=== PATIENT | female | born 1935 | race African-American/Black ===

== ENCOUNTER 2016-04-14 15:46 | Inpatient (IN) | payer OTHER ==
[2016-04-14] MEDS ORDERED: NS 1,000 ML ONE (16:12)
[2016-04-14] MEDS ORDERED: NS 1,000 ML IV ONE (17:02)
[2016-04-14 17:08] LABS: MANUAL DIFF NEEDED? NO
[2016-04-14 17:10] LABS: BASO% 0.5 % (0.0-0.8); EOS# 0.25 X1000 (0.0-0.7); EOS% 2.3 % (0.0-10.0); HEMATOCRIT 35.7 % (37.0-47.0); HEMOGLOBIN 11.4 g/dL (12.0-16.0); IMM GRAN# 0.05 X1000 (0.0-0.04); IMM GRAN% 0.5 % (0.0-0.5); LYMPH# 2.92 X1000 (1.2-3.4); LYMPH% 26.7 % (20.5-51.1); MCH 30.2 PG (27-31); MCHC 31.9 g/dL (33-37); MCV 94.4 FL (81-99); MONO# 1.04 X1000 (0.11-0.59); MONO% 9.5 % (1.7-9.3); MPV 10.5 FL (7.4-10.4); NEUT% 60.5 % (42.2-75.2); PLT 239 X1000 (130-400); RBC 3.78 XMIL (4.2-5.4)
[2016-04-14 17:28] LABS: ALBUMIN 3.8 g/dL (3.5-5.0); CALCIUM 8.7 mg/dL (8.8-10.2); POTASSIUM 3.6 mmol/L (3.5-5.1); TOTAL BILIRUBIN 0.2 mg/dL (0.20-1.00); TOTAL PROTEIN 7.8 g/dL (6.3-8.3)
--- NOTE | 2016-04-14 18:00 | PROVIDER DOCUMENTATION ---
Addendum entered and electronically signed by Eugenie Upton Scribe 04/14/16 22: 39: EKG Interpretation - EKG Time of EKG reading by physician:: 22:29 EKG Read and Signed by:: Ruy Dwyer EKG Interpretation (*Must complete 3 of following elements*): Abnormal Rate: 91 Rhythm: NSR [place]: normal Comments: inferior infarct, age undetermined Addendum entered and electronically signed by Eugenie Upton Scribe 04/14/16 20: 19: Progress - CONSULTS/PCP/HOSPITALIST Notification #1 *Consult/PCP/Hospitalist*: Dr. Mccrary Time Discussed: 20:16 Consult Disposition: Will see in ED, Admit Original Note: HPI-General Adult - General Chief Complaint: B/P Problems Stated Complaint: GEN WEAKNESS Time Seen by Provider: 04/14/16 16:32 Source: patient, family Allergies/Adverse Reactions: Patient Allergies Allergy/AdvReac Type Severity Reaction Status Date / Time tuberculin,PPD,multi-puncture Allergy Unknown Verified 10/11/15 12:52 Home Medications: Carvedilol [Coreg] 25 mg PO BID 10/11/15 Clonidine HCl 0.1 mg PO Q8H PRN PRN 10/11/15 Duloxetine [Cymbalta] 60 mg PO BID 10/11/15 Gabapentin [Neurontin] 300 mg PO DAILY 10/11/15 Glipizide [Glucotrol] 5 mg PO DAILY 10/11/15 Lisinopril 10 mg PO DAILY 10/11/15 Pioglitazone [Actos] 15 mg PO DAILY 10/11/15 Saccharomyces Boulardii [Florastor] 250 mg PO BID 10/11/15 - History of Present Illness -Gen Adult Nature of Presenting Problems: 80 [facility] pt sent to ER [employer] secondary to BP of 80/50. She is known to have very labile HTN and did have a CVA 11 years ago. She did have a AAA repair several years complicated by an infection and purulent drainage. She has seen Dr. Whaley and did have a six week course of Rocephin without benefit. Location of Pain/Injury: reports: none Pain Radiation: reports: no radiation Quality of Pain: reports: none Associated Symptoms: denies: anxiety, back/neck pain, chest pain, cough, diaphoresis, fever/chills, nausea, shortness of breath Similar Symptoms Previously?: No Recently seen or treated by another doctor?: No Review of Systems - Adult - REVIEW OF SYSTEMS - ADULT Constitutional: denies: chills, fever, night sweats Eyes: reports: no symptoms reported Ears, Nose, Mouth & Throat: reports: no symptoms reported Cardiovascular: reports: other (hypotension) Respiratory: reports: no symptoms reported Gastrointestinal: reports: no symptoms reported Genitourinary: reports: no symptoms reported Musculoskeletal: reports: no symptoms reported Integumentary: reports: see HPI, skin sores/ulcer Neurological: reports: paresthesia Psychiatric: reports: no symptoms reported Endocrine: reports: increased thirst, polyuria Hematologic/Lymphatic: reports: no symptoms reported Past History - Adult - PAST MEDICAL HISTORY-ADULT Review of Records: reports: Old Records Reviewed, Medications Reviewed, Social history reviewed & non-contributory. Cardiovascular: reports: A-Fib, HTN, other (aaa) Gastrointestinal: reports: denies history Obstetrical/Gynecological: reports: denies history Genitourinary: reports: denies history Neurological: reports: CVA, stroke deficits (left sided) Endocrine/Immune: reports: Diabetes - PRIOR SURGERIES/PROCEDURES Surgical/Procedure History: reports: hysterectomy - IMMUNIZATION STATUS Childhood Immunizations: See Nurse Assessment Flu Vaccine: See Nurse Assessment - FAMILY HISTORY Family History: reviewed, not pertinent Physical Exam-General - PHYSICAL EXAM-ADULT Initial Vital Signs Reviewed: Yes (BP increased to 95/65 after 500 ml of saline) - CONSTITUTIONAL General Appearance: appears well, alert, no apparent distress, obese - EYES Eyes: PERRL/EOMI - HEAD, EARS, NOSE, MOUTH & THROAT HENMT: normocephalic/atraumatic - NECK Neck: non-tender, supple - RESPIRATORY Respiratory: chest non-tender, lungs clear - CARDIOVASCULAR Cardiovascular: normal peripheral pulses, irregularly irregular - GASTROINTESTINAL (ABDOMEN) Abdominal Exam: normal bowel sounds - GENITOURINARY Rectal Exam: deferred - LYMPHATIC Lymphatic: no adenopathy - MUSCULOSKELETAL Back Exam: normal inspection, no CVA tenderness, no vertebral tenderness (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) Extremity: negative: normal gait (draining fistlula LLQ) - SKIN Integumentary: other (draining fistula LLQ) - NEUROLOGIC Neurologic: grossly normal Progress - PLAN OF CARE/RESULTS Progress/Plan/Lab Results: Laboratory Tests 04/14/16 04/14/16 04/14/16 16:05 16:05 16:59 WBC 10.93 H RBC 3.78 L Hgb 11.4 L Hct 35.7 L MCV 94.4 MCH 30.2 MCHC 31.9 L RDW Std Deviation 14.0 Plt Count 239 MPV 10.5 H Immature Gran % (Auto) 0.5 Neut % (Auto) 60.5 Lymph % (Auto) 26.7 [place] % (Auto) 9.5 H Eos % (Auto) 2.3 Baso % (Auto) 0.5 Immature Gran # (Auto) 0.05 H Neut # (Auto) 6.62 H Lymph # (Auto) 2.92 [place] # (Auto) 1.04 H Eos # (Auto) 0.25 Baso # (Auto) 0.05 Sodium 135 L Potassium 3.6 Chloride 95 L Carbon Dioxide 23 L Anion Gap 17 BUN 28 H Creatinine 3.7 H Estimated GFR/1.73 m2 14 BUN/Creatinine Ratio 8 Glucose 159 H POC Glucose 143 H D Calculated Osmolality 279 Calcium 8.7 L Total Bilirubin 0.20 AST 13 ALT 10 Alkaline Phosphatase 80 Total Protein 7.8 Albumin 3.8 Globulin 4.0 Albumin/Globulin Ratio 0.9 Plasma Lactate 04/14/16 17:33 WBC RBC Hgb Hct MCV MCH MCHC RDW Std Deviation Plt Count MPV Immature Gran % (Auto) Neut % (Auto) Lymph % (Auto) [place] % (Auto) Eos % (Auto) Baso % (Auto) Immature Gran # (Auto) Neut # (Auto) Lymph # (Auto) [place] # (Auto) Eos # (Auto) Baso # (Auto) Sodium Potassium Chloride Carbon Dioxide Anion Gap BUN Creatinine Estimated GFR/1.73 m2 BUN/Creatinine Ratio Glucose POC Glucose Calculated Osmolality Calcium Total Bilirubin AST ALT Alkaline Phosphatase Total Protein Albumin Globulin Albumin/Globulin Ratio Plasma Lactate 2.6 H Orders Category Date Time Status Diabetic Diet Diet 04/14/16 18:23 Active CHEST-PORTABLE [RAD] Stat Exams 04/14/16 16:59 Taken ANAEROBIC CULTURE [RM] Routine Lab 04/14/16 17:02 Received BLOOD CULTURE [BLDCUL] Stat Lab 04/14/16 17:10 Received CBC WITH ELECTRONIC DIFF [HEME] Stat Lab 04/14/16 16:05 Completed COMPREHENSIVE METABOLIC PANEL [CHEM] Stat Lab 04/14/16 16:05 Completed GRAM STAIN [DIREX] Stat Lab 04/14/16 17:02 Received LACTATE, PLASMA [CHEM] Stat Lab 04/14/16 17:33 Completed ROUTINE CULTURE [RM] Routine Lab 04/14/16 17:02 Received UA NIMS W/REFLEX CULT [URINALYSIS] Stat Lab 04/14/16 16:58 Uncollected WOUND CULTURE INC GRAM STAIN [RM] Routine Lab 04/14/16 18:08 Ordered 0.9% Sodium Chloride Inj [Ns] 1,000 ml Med 04/14/16 16:12 Discontinued .ROUTE As Directed 0.9% Sodium Chloride Inj [Ns] 1,000 ml Med 04/14/16 17:02 Discontinued IV 999 mls/hr Pharmacy Order [Vancomycin IV Per Pharmacy] Med 04/14/16 18:30 Ordered 1 each MISC DIRECTED Piperacil/Tazobact 3.375 gm/Ns [Zosyn 3.375 gm/Ns] 50 Med 04/14/16 18:23 Active ml IV NOW Vital Signs Temp Pulse Resp BP Pulse Ox 04/14/16 17:50 93 H 18 119/60 98 04/14/16 15:47 99 F 95 H 15 90/62 99 tuberculin,PPD,multi-puncture Allergy (Verified 10/11/15 12:52) Unknown Carvedilol [Coreg] 25 mg PO BID 10/11/15 Clonidine HCl 0.1 mg PO Q8H PRN PRN 10/11/15 Duloxetine [Cymbalta] 60 mg PO BID 10/11/15 Gabapentin [Neurontin] 300 mg PO DAILY 10/11/15 Glipizide [Glucotrol] 5 mg PO DAILY 10/11/15 Lisinopril 10 mg PO DAILY 10/11/15 Pioglitazone [Actos] 15 mg PO DAILY 10/11/15 Saccharomyces Boulardii [Florastor] 250 mg PO BID 10/11/15 Aspirin 81 mg PO DAILY #30 10/18/15 Baclofen 10 mg PO DAILY PRN #30 10/18/15 CefTRIAXONE 2 GM/NS [Rocephin 2 gm/Ns] 2 gm IV Q12H #90 ivpb 10/18/15 Diltiazem C.d. [Cardizem Cd] 240 mg PO DAILY #30 capsule 10/18/15 Linaclotide [Linzess] 145 mcg PO DAILY@0700 #30 capsule 10/18/15 Dietary Diet Diabetic Diet Start WedApr 14 1822 I&O 04/13/16 04/14/16 04/15/16 06:59 06:59 06:59 Output Total 16 Balance -16 Laboratory 04/14/16 04/14/16 04/14/16 17:33 16:59 16:05 WBC RBC Hgb Hct MCV MCH MCHC RDW Std Deviation Plt Count MPV Immature Gran % (Auto) Neut % (Auto) Lymph % (Auto) [place] % (Auto) Eos % (Auto) Baso % (Auto) Immature Gran # (Auto) Neut # (Auto) Lymph # (Auto) [place] # (Auto) Eos # (Auto) Baso # (Auto) Sodium 135 L Potassium 3.6 Chloride 95 L Carbon Dioxide 23 L Anion Gap 17 BUN 28 H Creatinine 3.7 H Estimated GFR/1.73 m2 14 BUN/Creatinine Ratio 8 Glucose 159 H POC Glucose 143 H D Calculated Osmolality 279 Calcium 8.7 L Total Bilirubin 0.20 AST 13 ALT 10 Alkaline Phosphatase 80 Total Protein 7.8 Albumin 3.8 Globulin 4.0 Albumin/Globulin Ratio 0.9 Plasma Lactate 2.6 H 04/14/16 16:05 WBC 10.93 H RBC 3.78 L Hgb 11.4 L Hct 35.7 L MCV 94.4 MCH 30.2 MCHC 31.9 L RDW Std Deviation 14.0 Plt Count 239 MPV 10.5 H Immature Gran % (Auto) 0.5 Neut % (Auto) 60.5 Lymph % (Auto) 26.7 [place] % (Auto) 9.5 H Eos % (Auto) 2.3 Baso % (Auto) 0.5 Immature Gran # (Auto) 0.05 H Neut # (Auto) 6.62 H Lymph # (Auto) 2.92 [place] # (Auto) 1.04 H Eos # (Auto) 0.25 Baso # (Auto) 0.05 Sodium Potassium Chloride Carbon Dioxide Anion Gap BUN Creatinine Estimated GFR/1.73 m2 BUN/Creatinine Ratio Glucose POC Glucose Calculated Osmolality Calcium Total Bilirubin AST ALT Alkaline Phosphatase Total Protein Albumin Globulin Albumin/Globulin Ratio Plasma Lactate Departure - Departure Time of Disposition Order: 18:25 DIAGNOSIS: Septicemia, Vascular graft infection Disposition: ADMITTED INPATIENT 09 Certified Medical Emergency: Emergent Condition: Fair
[2016-04-14] MEDS ORDERED: ZOSYN 3.375 GM/NS 50 ML IV ONE (18:23)
[2016-04-14] MEDS ORDERED: VANCOMYCIN IV PER PHARMACY MISC SCH (18:30)
[2016-04-14 18:34] LABS: URINE SOURCE CATH
[2016-04-14 18:44] LABS: BILIRUBIN URINE NEGATIVE (NEGATIVE); BLOOD URINE NEGATIVE (NEGATIVE); COLOR YELLOW; GLUCOSE URINE TRACE mg/dL (NEGATIVE); LEUKOCYTES URINE SMALL (NEGATIVE); NITRITE URINE NEGATIVE (NEGATIVE); PROTEIN URINE 30 mg/dL (NEGATIVE); SP GRAVITY URINE 1.028; TURBIDITY URINE HAZY (CLEAR); UROBILINOGEN URINE 2 mg/dL (NORMAL)
[2016-04-14 18:47] LABS: URINE MICRO REVIEW NEEDED? YES
[2016-04-14 18:53] LABS: UR EPITHELIAL CELLS <10 /HPF (<10); URINE BACTERIA NEGATIVE /HPF; URINE CULTURE NEEDED? YES; URINE RBC <10 /HPF (<10); URINE WBC <10 /HPF (<10)
[2016-04-14 19:08] LABS: URINE CASTS NONE SEEN; URINE CRYSTALS NONE SEEN; URINE SMALL ROUND CELLS RENAL PRESENT
[2016-04-14] MEDS ORDERED: VANCOMYCIN 1,800 MG in NS 250 ML IV ONE (20:00)
[2016-04-14 20:50] LABS: INR 1.03; PROTIME 10.9 Seconds (9.2-11.7); PTT 26.1 Seconds (22.0-36.0)
[2016-04-15] MEDS ORDERED: TYLENOL LIQUID PO PRN (01:07)
[2016-04-15] MEDS ORDERED: ZOFRAN IV PRN (01:07)
[2016-04-15] MEDS ORDERED: NS 500 ML IV ONE (01:09)
[2016-04-15] MEDS: NS 1,000 ML IV SCH ×3 (01:18→18:29)
[2016-04-15 02:51] LABS: URINE SOURCE CATH
[2016-04-15 02:56] LABS: BILIRUBIN URINE NEGATIVE (NEGATIVE); BLOOD URINE SMALL (NEGATIVE); COLOR YELLOW; GLUCOSE URINE NEGATIVE (NEGATIVE); LEUKOCYTES URINE SMALL (NEGATIVE); NITRITE URINE NEGATIVE (NEGATIVE); PH URINE 5.5; PROTEIN URINE 30 mg/dL (NEGATIVE); TURBIDITY URINE HAZY (CLEAR); UROBILINOGEN URINE NORMAL (NORMAL)
[2016-04-15 02:57] LABS: URINE MICRO REVIEW NEEDED? YES
[2016-04-15 03:13] LABS: UR EPITHELIAL CELLS <10 /HPF (<10); URINE BACTERIA NEGATIVE /HPF; URINE CULTURE NEEDED? YES; URINE RBC <10 /HPF (<10); URINE WBC <10 /HPF (<10)
[2016-04-15] MEDS: ZOSYN 2.25 GM/NS 50 ML IV SCH ×3 (04:00→16:05)
[2016-04-15 04:19] LABS: URINE CASTS NONE SEEN
--- NOTE | 2016-04-15 05:51 | EKG Report ---
Test Performed on : 04/14/2016 10:29:12 PM Test Reason : Sepsis Blood Pressure : / mmHG Vent. Rate : 091 BPM Atrial Rate : 091 BPM P-R Int : 166 ms QRS Dur : 076 ms QT Int : 388 ms P-R-T Axes : 033 005 -04 degrees QTc Int : 477 ms Normal sinus rhythm. Inferior infarct , age undetermined Cannot rule out Anterior infarct , age undetermined Abnormal ECG When compared with ECG of 11-OCT-2015 15:46, Inferior infarct is now present Unconfirmed Result
[2016-04-15] MEDS: HUMALOG SUBQ SCH ×4 (06:48→21:14)
--- NOTE | 2016-04-15 06:58 | CONSULTATION ---
DATE OF CONSULTATION: 04/15/2016 REQUESTING PHYSICIAN: Hospitalist service. REASON FOR CONSULTATION: Consult concerning a left groin abscess. HPI: An 80-year-old, female at [facility] [employer] who was sent to the ER because of blood pressure 80/50 and was noted to have a chronic wound in her left groin. She had previously been evaluated by myself back in October of this year and had a seroma drained from her right groin. We elected to do nonoperative management of her left groin. She has an extensive surgical history including an aorta bi-fem and femoral distal bypass on that left side. Then on previous CT scan, this chronic wound is sitting right near her graft. She was admitted by the hospitalist service for this admission for altered mental status and this chronic wound. She has been started on vancomycin and Zosyn. Patient is currently altered and unable to give further details and there is no family available to give more information. I did discuss the patient's admission and hospital course with the tonger nurse practitioner from the hospitalist service. PAST MEDICAL HISTORY: 1. Atrial fibrillation. 2. Hypertension. 3. History of strokes. 4. History of AAA. 5. Persistent left-sided weakness. 6. Diabetes. PAST SURGICAL HISTORY: 1. Hysterectomy. 2. Previous aortobifemoral. 3. Previous left femoral distal bypass. 4. Previous left [id number] amputation. ALLERGIES: TB skin test. HOME MEDICATIONS: Reviewed. Of note, again patient is on Zosyn and vancomycin. FAMILY HISTORY: Reviewed from the chart. Noncontributory. SOCIAL HISTORY: [facility] REVIEW OF SYSTEMS: Unable to obtain secondary to patient's mental status. PHYSICAL EXAMINATION: Vital Signs: The patient is currently afebrile. Temperature 97.8 degrees, pulse is regular at 89, respiratory rate nonlabored at 17, blood pressure 117/72. O2 saturation 99% on room air. General exam: No acute distress. female, looks stated age. HEENT: Normocephalic, atraumatic. Pupils equal, round, reactive to light. Mucous membranes moist. Oropharynx benign. Neck: Supple. Trachea midline. Cardiovascular: Regular rate and rhythm. Lungs: Grossly clear. Abdomen: Soft, nontender, nondistended. Extremities: Chronic wound noted in the left groin. There is some purulence draining. Right groin appears without pathology. 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 Neurologic: Persistent left- sided weakness. LABORATORY: White blood cell count 10.9, hematocrit 35, platelet count 239,000, creatinine 3.7. ASSESSMENT/PLAN: An 80-year-old, female with a chronic wound to the left lower extremity and previous surgical interventions. Chronic wound to left lower extremity. At this time the patient is high risk for any surgical intervention. She has had this chronic wound for least half a year. We will reorder a CT scan to evaluate if there is any pseudoaneurysm at the area of the infection, but at this time I suspect the patient would not tolerate any major surgical intervention. Surgical intervention would likely be an extra-anatomic bypass including the axillary bifemoral bypass with removal of all her prosthetic material which would include an abdominal incision to remove her aorta bifemoral. This would likely be a very difficult surgery for the patient to tolerate given her comorbidities and overall health condition with residual neurologic defect and previous amputation. Suspect the best thing to do might be to continue her on suppressive antibiotics, but again will follow up with CT scan as ordered by the hospitalist service. I will review the images with some of my partners to get second opinions.
[2016-04-15 07:21] LABS: MANUAL DIFF NEEDED? NO
[2016-04-15 07:24] LABS: BASO% 0.4 % (0.0-0.8); EOS# 0.36 X1000 (0.0-0.7); EOS% 3.8 % (0.0-10.0); HEMATOCRIT 32.4 % (37.0-47.0); HEMOGLOBIN 10.4 g/dL (12.0-16.0); IMM GRAN# 0.03 X1000 (0.0-0.04); IMM GRAN% 0.3 % (0.0-0.5); LYMPH# 2.52 X1000 (1.2-3.4); LYMPH% 26.3 % (20.5-51.1); MCH 30.3 PG (27-31); MCHC 32.1 g/dL (33-37); MCV 94.5 FL (81-99); MONO# 1.03 X1000 (0.11-0.59); MONO% 10.7 % (1.7-9.3); MPV 10.7 FL (7.4-10.4); NEUT% 58.5 % (42.2-75.2); PLT 214 X1000 (130-400); RBC 3.43 XMIL (4.2-5.4)
[2016-04-15 07:51] LABS: URINE SOURCE CATH
[2016-04-15 07:56] LABS: BILIRUBIN URINE NEGATIVE (NEGATIVE); BLOOD URINE SMALL (NEGATIVE); COLOR YELLOW; GLUCOSE URINE NEGATIVE (NEGATIVE); LEUKOCYTES URINE NEGATIVE (NEGATIVE); NITRITE URINE NEGATIVE (NEGATIVE); PROTEIN URINE 30 mg/dL (NEGATIVE); SP GRAVITY URINE 1.016; TURBIDITY URINE CLEAR (CLEAR); UROBILINOGEN URINE NORMAL (NORMAL)
--- NOTE | 2016-04-15 07:56 | HISTORY AND PHYSICAL ---
PRIMARY CARE PROVIDER: Dr. Alex Pérez at [facility]. CHIEF COMPLAINT: Weakness and hypotension. HISTORY OF PRESENT ILLNESS: Ms. Robins is an 80-year-old female who presented to the emergency room tonight with the complaints of weakness and hypotension. According to her past medical records, it does appear that Dr. Whaley had recently been treating her for a left groin infection which was noted on her last admission in October of 2015, to extend down to the graft. The patient also has previously had vascular surgery performed by Dr. Teo Peres. At this time she has had an abdominal aortic aneurysm repair and iliofemoral bypass. She also had a left femoral- popliteal bypass. According to the emergency room staff, it was reported by the [facility] staff that the patient has been seeing Dr. Whaley and reviewing intravenous Rocephin for ongoing treatment of her wound in her left groin. Upon examination in the emergency room the patient's initial blood pressure was 90/62 with a MAP of 69. She did have a low-grade fever of 99 as well. It was also noted that the patient did have purulent drainage noted to the wound in her left groin area. The patient was also noted to be drowsy upon examination though did respond to verbal stimuli by calling her name. She is only alert and oriented to person. She thought it was August and that she was still at [facility]. Note on her transfer from the [facility], they noted that her baseline mental status is confusion also. The patient's initial lactate was 2.6. She was also noted to have significant reduction in her renal function. Her last GFR on October 25, 2015 was greater than 60 and her creatinine was 0.7 and is now 3.7. She does have noted in her past medical history that she has a history of chronic kidney disease though this has declined from previous labs. She was given a 1-liter normal saline bolus in the emergency room which did improve her blood pressure from 90/62 to 119/60. She also was given vancomycin and Zosyn. Blood cultures as well as a wound culture was obtained. At this time we will admit the patient for further treatment and evaluation of her sepsis and her left groin wound and her acute kidney injury. REVIEW OF SYSTEMS: A 10-point review of systems was conducted with the patient and all were negative except for pertinent positives mentioned in the above HPI. I did ask the patient if she was having any shortness of breath, chest pain, abdominal pain, or dizziness, though she answered no to every one of my questions. At this time the review of systems with the patient was difficult due to the patient's current mentation. PAST MEDICAL HISTORY: 1. Hypertension. 2. Atrial fibrillation. 3. Abdominal aortic aneurysm repair. 4. CVA with persistent left-sided weakness. 5. Diabetes mellitus type 2. 6. Left leg qcknr-[id number]-prwq amputation. 7. 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 8. Cataracts. 9. Visual problems. 10.Previous right groin seroma. 11.Previous left groin infection that extended down to her graft, which is recently being treated and followed by Dr. Whaley. PAST SURGICAL HISTORY: 1. Hysterectomy. 2. Status post vascular intervention on the left lower extremity, which according to the previous medical record in the historical patient data was a left femoral to distal popliteal graft bypass. 3. Status post aspiration of right groin seroma in October 2015. 4. Abdominal aortic aneurysm repair and iliofemoral bypass. SOCIAL HISTORY: The patient is a resident at [facility]. According to her record from the [facility], she does have a nicotine dependency, though due to the patient's current condition I was unable to verify if she still smokes at this time. Unknown if the patient has a previous history of any alcohol or illicit drug use. FAMILY HISTORY: This is unknown at this time as well due to we are unable to obtain information due to the patient's current condition. ALLERGIES: The patient has allergies to the tuberculin skin test. HOME MEDICATIONS: 1. Trazodone 75 mg p.o. at bedtime. 2. Florastor 250 mg p.o. b.i.d. 3. Klor-Con 20 mEq p.o. daily. 4. Actos 15 mg p.o. daily. 5. Melatonin 30 mg p.o. at bedtime. 6. Lisinopril 10 mg p.o. daily. 7. Linzess 145 mcg p.o. daily. 8. Glipizide 5 mg p.o. daily. 9. Neurontin 300 mg p.o. daily. 10.Pepcid 20 mg p.o. b.i.d. 11.Cardizem controlled dose 240 mg p.o. daily. 12.Clonidine HCl 0.1 mg p.o. q.8 h. p.r.n. 13.Coreg 25 mg p.o. b.i.d. 14.Baclofen 10 mg p.o. daily. 15.Aspirin 81 mg p.o. daily. DIAGNOSTIC DATA AND LABORATORY RESULTS: White blood cell count was 10.93. Red blood cell count 3.78. Hemoglobin 11.4. Hematocrit 35.7. Platelet count is 239,000. PT 10.9. INR 1.03. PTT 26.1. Sodium 135. Potassium 3.6. Chloride 95. Carbon dioxide 23. BUN was 28. Creatinine was 0.7 with a GFR of 14. Glucose 159. Calcium 8.7. Liver function tests within normal limits. CK 52. Troponin 0.048. Plasma lactate 2.6. The urinalysis obtained via cath was positive for protein, trace ketones, and small leukocytes. It was negative for blood, nitrites, white blood cells, or bacteria. The EKG showed a normal sinus rhythm with an inferior infarct, age undetermined, at a rate of 91. The chest x-ray at this time shows no acute disease. We did compare this to a previous x-ray which was very similar, though we are awaiting official Radiology over read. PHYSICAL EXAMINATION: VITAL SIGNS: Temperature 99, heart rate 94, respirations 20, and blood pressure is 110/65. The oxygen saturation is 98% on room air. GENERAL: Ms. Robins is an obese 80-year-old -[place] female who was resting on the emergency room stretcher, was in no acute distress. She was very drowsy upon examination though did respond to verbal stimulation by calling her name. Upon awakening she was alert and oriented to person only. HEENT: The head is normocephalic and atraumatic. The pupils are equal, round, and reactive to light, 3 mm bilaterally and brisk. The subconjunctivae were pink. The oral mucosa was dry. The oropharynx was clear. NECK: Supple. The trachea is midline. No carotid bruits are noted upon auscultation. No JVD is noted. CARDIOVASCULAR: The patient has an S1 and S2 present. No murmurs, rubs, or gallops are appreciated, with a regular rate and rhythm. PULMONARY: The patient has symmetrical chest expansion bilaterally. The lung sounds are clear to auscultation in bilateral full cook. GASTROINTESTINAL: The abdomen is soft, nontender, and nondistended. There is no facial grimacing noted upon palpation of the patient's abdomen. Bowel sounds are present in all four quadrants and normoactive. EXTREMITIES: The patient does have a left qtayi-[id number]-[id number] amputation noted. Pulses, motor, and sensory was intact in all extremities. The pedal pulses in the patient's right foot were obtained via vascular Doppler due to they were difficult to palpate. INTEGUMENTARY: The patient's skin color is normal for her race. It is warm, dry, and intact except for the wound noted to her left groin area, which does have purulent drainage noted. NEUROLOGICAL: The patient is alert and oriented to person only. The patient's neurological exam was limited and difficult to obtain due to the patient's current condition and mental status. ASSESSMENT AND PLAN: 1. Sepsis. We believe this is likely secondary to her left groin wound. We have obtained a wound culture of this, as well as blood cultures. We have placed the patient on antibiotics of vancomycin and Zosyn. Renal dosing was implemented. She did receive a 1-liter normal saline bolus in the emergency room. We will continue fluid hydration at 125 mL per hour. We will continue to follow this closely. We have consulted Dr. Ware with Surgery, who recently has treated the patient, as well as Dr. Whaley with Infectious Disease, and we will await their consult and further recommendations. 2. Left groin wound. We will continue with treatment as mentioned in #1. 3. Leukocytosis. We will continue with treatment as mentioned in #1. 4. Acute kidney injury on chronic kidney disease. As previously mentioned, the patient's kidney function has declined significantly related to her previous laboratories. We will continue with fluid hydration as previously mentioned. We have also placed a consult for Dr. Malave to evaluate the patient as well and for him to evaluate and treat. 5. Fluid volume depletion. We will continue with treatment as mentioned previously. 6. Hypotension. At this time since her 1-liter normal saline bolus this has resolved. The patient's last blood pressure was 110/65 with a mean arterial pressure of 70. We will monitor this very closely, and we will hold all her antihypertensive medications. 7. Diabetes mellitus type 2. We will take the patient off her oral diabetic medication and place her on a sliding scale insulin Lispro low-dose regimen, and we will continue to follow. 8. Atrial fibrillation. At this time the patient's current electrocardiogram shows that she is in a normal sinus rhythm. Due to her hypotension at this time we will hold her Cardizem and will continue to follow. 9. The patient will be placed in the intensive care unit. She will have vital signs q.1 h. per intensive care unit protocol. 10.Deep venous thrombosis prophylaxis will be provided with heparin 5000 units subcutaneously q.12 h. 11.We will do strict intake and output. 12.Neurological checks q.4 h. 13.We will do aspiration precautions. 14.She will be placed on a diabetic diet though due to her current condition and mental status we will perform a swallowing screen before implementing this diet. 15.We will repeat a complete blood count, as well as a renal profile in the morning. 16.We will trend her troponins due to there was a slight elevation of 0.048 though at this time the patient is not having any electrocardiogram changes and does not report any chest pain. 17.Further orders and recommendations pending the hospital course, diagnostic studies, and physician evaluation. Dictated by TATI Nguyen for Job Mccrary MD
[2016-04-15 07:58] LABS: URINE MICRO REVIEW NEEDED? YES
[2016-04-15 08:00] LABS: UR EPITHELIAL CELLS <10 /HPF (<10); URINE BACTERIA NEGATIVE /HPF; URINE WBC <10 /HPF (<10)
[2016-04-15 08:05] LABS: ALBUMIN 3.3 g/dL (3.5-5.0); CALCIUM 8.3 mg/dL (8.8-10.2); POTASSIUM 3.7 mmol/L (3.5-5.1)
--- NOTE | 2016-04-15 08:06 | Diag Imaging Result Document ---
PROCEDURE NAME: CHEST-PORTABLE - 04/14/2016 SINGLE FRONTAL RADIOGRAPH OF THE CHEST: COMPARISON: 10/16/2015. FINDINGS: Inspiration is suboptimal. The lungs are grossly clear. There is evidence of prior granulomatous disease that is stable. There is perhaps mild prominence of the cardiac silhouette that is unchanged. IMPRESSION: Stable chest with no definite acute pathology.
[2016-04-15 08:07] LABS: UR CREAT RANDOM 102.4 mg/dL (11-20); UR PROT RANDOM 50.2 mg/dL; URINE CASTS NONE SEEN; URINE CRYSTALS NONE SEEN; URINE SMALL ROUND CELLS NONE SEEN
--- NOTE | 2016-04-15 08:57 | CONSULTATION ---
DATE OF CONSULTATION: 04/15/2016 Patient is unable to provide a history. No family members present. The history that I obtained was from reviewing the data in the computer. CONCLUSION: Patient is admitted to the hospital with a left groin infection which undoubtedly extends to the underlying aortofemoral graft. RECOMMENDATIONS: I agree with the decision to treat the patient with a combination of vancomycin and Zosyn pending culture results. Previously, from the graft the patient has grown Morganella. DISCUSSION: The patient, as mentioned above, has what appears to be an infected aortobifemoral graft. She previously was in for the same infection in the same location in October 2015. At that time, we treated the patient with 6 weeks of IV antibiotics and the patient was then placed on Septra to take daily, to hopefully prevent the infection from becoming active. I noticed from the review of the patient's home medicines that she was not taking Septra. 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 She has had a hysterectomy. PREVIOUS HOSPITALIZATIONS AN OPERATIONS: She has had labor and deliveries, a hysterectomy, aortobifemoral graft performed by Dr. Peres, and a left [id number] amputation. MEDICAL DISEASES: Positive for peripheral vascular disease, diabetes mellitus, hypertension, stroke and end-stage renal disease. INFECTIOUS DISEASE HISTORY: Positive for a left groin infection, involving the graft as mentioned above. Negative for pneumonia and UTI. FAMILY HISTORY: Positive for diabetes mellitus, hypertension and stroke. SOCIAL HISTORY: The patient lives in a alf. She has a history of cigarette smoking, but not drinking alcoholic beverages. ALLERGIES: Her only allergy is to tuberculin skin test. HOME MEDICATIONS: Include trazodone, , potassium, Actos, melatonin, lisinopril, Linzess, glipizide, gabapentin, famotidine, diltiazem, clonidine, carvedilol, baclofen and aspirin. As mentioned previously, when I saw the patient during her last admission she was started on Septra to be taken daily, but I do not see where that is listed as one of her home medications at this time. PHYSICAL EXAMINATION: Vital Signs: Temperature is 97.8, pulse 89, respirations 17, blood pressure 117/72. General: This is an ill-appearing, elderly female, who is obtunded. HEENT: The patient did not respond to verbal stimuli. She did not open her eyes. There was no drainage coming from the nose or ears. Neck: No meningismus. Thorax: Patient appeared to have an increased AP diameter of the chest. Lungs: Clear to auscultation. Cardiovascular: Heart rate was regular. Abdomen: Soft without masses or tenderness. Extremities: In the left groin, there is a wound draining purulent fluid. It does not have an odor. Patient has a left lzszc-[id number]-[id number] amputation. I was unable to feel a peripheral pulse in the right leg. Neurologic: Patient is obtunded. She did not respond to verbal stimuli. She appears to have a paresis or paralysis of the left arm in that it is lying in bed in what appears to be a contractured position. Integument: No rash noted. LABORATORY DATA: Thus far today shows a CBC with a white count of 9600, hemoglobin 10.4, and platelet count 214,000. Creatinine is 3.7. GFR is 14. Liver function studies are normal. Urinalysis shows no bacteria and less than 10 white cells. Blood and urine cultures are pending. Wound Gram stain from the right groin showed no bacteria. As mentioned above, a culture taken from the groin in October of last year grew Morganella. Thank you for the consult.
[2016-04-15] MEDS: HEPARIN SUBQ SCH ×2 (09:11→21:16)
--- NOTE | 2016-04-15 09:51 | Diag Imaging Result Document ---
PROCEDURE NAME: ABDOMEN/PELVIS W/O CONTRAST - 04/15/2016 CT ABDOMEN AND PELVIS: COMPARISON: 10/14/2015. FINDINGS: There is some linear atelectasis in the lung bases, particularly the left lower lobe. There is fat deposition at the intraventricular septum indicating prior insult, such as infarction. There are scattered bilateral nonobstructing renal stones measuring up to about 8 mm, right greater than left. There are cholecystectomy clips. No bowel obstruction or inflammation. There has been bypass of the distal aorta extending to the femoral arteries. There is also a left superficial femoral artery bypass. There is a grossly stable, relatively large homogeneous fluid collection at the right groin extending to the very skin surface. This measures about 17.9 x 8.8 cm. Gracia catheter in the urinary bladder. Rectum is normal. Moderate degenerative changes of the spine. No acute bony lesions. IMPRESSION: 1. No change in the relatively large benign-appearing fluid collection in the right groin. 2. Significant bilateral nephrolithiasis with no evidence obstruction.
--- NOTE | 2016-04-15 09:57 | CONSULTATION ---
DATE OF CONSULTATION: 04/15/2016 REASON FOR CONSULTATION: Acute kidney injury. HISTORY OF PRESENT ILLNESS: Obtained entirely from the ER note because the patient is unresponsive. She is an elderly woman who resides in a local detention facility. She was brought to the emergency room last evening because of hypotension. Her evaluation found evidence of sepsis including purulent drainage from her left thigh graft. This is chronic. Modest leukocytosis and acute kidney injury. On these bases, she was admitted to the intensive care unit. She has been treated with IV fluid resuscitation with improvement in her blood pressure and her urine output. PAST MEDICAL HISTORY: 1. Cerebrovascular accident with residual left hemiparesis. 2. Peripheral vascular disease with an infected vascular graft in the left inguinal region. Left AKA as well. 3. Diabetes. 4. Hypertension. 5. Hyperlipidemia. HOME MEDICATIONS: Carvedilol, clonidine, duloxetine, gabapentin, glipizide, lisinopril, pioglitazone, Florastor. ALLERGIES: Tuberculin, PPD. SOCIAL HISTORY: As above. FAMILY HISTORY, REVIEW OF SYSTEMS: Otherwise not obtainable. PHYSICAL EXAMINATION: Vital Signs: Blood pressure 125/75, heart rate 88, respiration 18, afebrile. Intake is documented as 675 mL. General: Elderly woman, unresponsive. Actively resists eye opening, no distress. Skin: Warm and dry. Conjunctivae are pale. Oropharynx is not examined. Neck: Supple. Trachea is midline. Neck veins are not visible. Heart: Regular with S4 gallop. Lungs: Have equal breath sounds. No crackles or wheezes. Abdomen: Soft, nontender. Bowel sounds present. No organomegaly or masses. Extremities: Have no edema, clubbing, or cyanosis. Purulent drainage from the left inguinal region. Neurologic: Exam with flexion contracture of the left upper extremity. LABORATORY DATA: Sodium 139, potassium 3.7, chloride 102, bicarbonate 19, BUN 31, creatinine 2.7. Urinalysis with trace protein, small blood. FENA is greater than 1%. IMPRESSION: Acute kidney injury in the context of sepsis. Her urine output and her creatinine are improving nicely with IV fluid resuscitation. CT of the abdomen has been performed, but the results are pending. Continue current IV fluids. No other intervention is required at this time. I have reviewed her medications. Her Zosyn dose is appropriate for her level of kidney function. No other changes.
[2016-04-15] MEDS ORDERED: PRINIVIL PO SCH (13:45)
--- NOTE | 2016-04-15 14:41 | PROGRESS NOTE ---
DATE: 04/15/2016 SUBJECTIVE: This morning, Ms. Robins referred to be doing okay. According to the nurses, there have not been any changes in her medical condition. Vitals have been stable. OBJECTIVE: Vital signs: Blood pressure is 135/83, pulse of 97, respirations 23, temperature 97.3 degrees. General exam: Ms. Robins is an 80-year-old, female. She is in bed and does not seem to be in any distress. HEENT: Mucosa is pink and moist. Anicteric. Acyanotic. Neck: Supple. Chest: Good air entry bilaterally. Few bibasilar crepitations. Cardiovascular: Regular rate and rhythm. Abdomen: Soft, slightly distended, but nontender. Bowel sounds were present. There is bruising wound on the left inguinal region. Extremities: There is a left AKA; the right lower extremity shows no abnormality. 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 She is able to obey some commands, but she is nonverbal. She has a left side hemiplegic gait. LABORATORY DATA: WBC is 9.60, hemoglobin is 10.4, platelet count of 214. Sodium is 139, potassium is 3.7, chloride is 102, bicarbonate is 19, creatinine is 2.7 (a little improved). MICROBIOLOGY: So far, blood cultures still pending. Urine culture is negative. ASSESSMENT: 1. Hypotension on presentation suspicious for infectious etiology. The patient was started on antibiotics. Blood cultures and urine cultures were done. At this point in time, they have not been negative. I also think that it could be related to multiple blood pressure medications, as well as some sedatives that patient was on at home. 2. Large right inguinal benign-appearing fluid collection noted. 3. Suspected infected vascular graft. Surgery has been notified and they are on board. 4. History of cerebrovascular accident with left-sided hemiparesis. 5. 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 6. Acute kidney injury. We will continue with adequate hydration and avoid any nephrotoxic drugs. For now, we will withhold the lisinopril and only use the carvedilol for blood pressure control. PLAN: The patient's blood pressure is now a little high. We are going to start her on just the lisinopril. We are going to transfer the patient to the regular floor with telemonitor. We had planned to start the patient on the lisinopril, but because of the renal compromise we will withhold the lisinopril.
[2016-04-15] MEDS ORDERED: CARVEDILOL 25 MG PO SCH (17:06)
[2016-04-15] MEDS: COREG PO SCH (21:17)
--- NOTE | 2016-04-15 21:34 | CONSULTATION ---
DATE OF CONSULTATION: 04/15/2016 CHIEF COMPLAINT: Left groin drainage, right groin cyst. HISTORY: This is an 80-year-old, black female who has a history of an aortobifemoral bypass graft in the distant past by Dr. Peres. She now resides in a assisted and has undergone a left above-knee amputation in the past but she does have drainage from her left groin and a recurrent cyst in her right groin. A CT scan done back in October showed probable connection of the wound in the left groin to the graft and the cyst in fact may be associated with the graft as well. Cultures grew out Morganella. She is readmitted now with weakness and the situation with her graft persists. Ms. Robins's activity is rather limited as she resides in a wheelchair primarily, does not ambulate and is a resident of a assisted. MEDICATIONS: Listed. ALLERGIES: PPD. OTHER MEDICAL PROBLEMS: Atrial fibrillation, hypertension, stroke, diabetes. PAST SURGICAL HISTORY: Hysterectomy. FAMILY HISTORY: Noncontributory. REVIEW OF SYSTEMS: As noted above. PHYSICAL EXAMINATION: Vital Signs: Afebrile. Heart rate 90, respiratory rate 20, blood pressure 208/97. General: She does communicate. Lungs: Bilateral breath sounds. Heart: Regular rate and rhythm. Abdomen: Soft. She has drainage from her left groin. A rounded cystic structure is palpated in her right groin. Extremities: Her right leg has no palpable pedal pulses. The left stump is healed. ASSESSMENT: Infected aortobifemoral graft, however, she has no complicating features, that is no bleeding, infection or fever. In comparing the CT scans from now to the one from October 2015, there is no evidence of progression of the infectious process. The aortic portion appears to be satisfactorily incorporated and no false aneurysm is identified. The risk of removing the graft and revascularizing her lower extremities outweigh the benefits in view of her functional status. I discussed the risks of the operation to revascularize her legs and remove this graft. She really does not want to pursue that. The option would be simply to continue to treat her conservatively and treat her wound infection. She could be placed on chronic antibiotic therapy such as Bactrim to suppress the infection even though it will not heal the infection. I would leave that to the discretion of the Infectious Disease specialist. So I think the safer approach would be a conservative approach and not try to revascularize her and remove the infected graft. Thank you for allowing me the opportunity to see her. SEAN
[2016-04-16] MEDS: ZOSYN 2.25 GM/NS 50 ML IV SCH ×4 (00:01→16:59)
[2016-04-16] MEDS: NS 1,000 ML IV SCH ×3 (04:01→21:43)
[2016-04-16 05:50] LABS: MANUAL DIFF NEEDED? NO
[2016-04-16 05:58] LABS: BASO% 0.6 % (0.0-0.8); EOS# 0.13 X1000 (0.0-0.7); HEMATOCRIT 30.3 % (37.0-47.0); HEMOGLOBIN 9.9 g/dL (12.0-16.0); IMM GRAN# 0.02 X1000 (0.0-0.04); IMM GRAN% 0.3 % (0.0-0.5); LYMPH# 1.35 X1000 (1.2-3.4); LYMPH% 21.2 % (20.5-51.1); MCHC 32.7 g/dL (33-37); MCV 91.8 FL (81-99); MONO# 0.71 X1000 (0.11-0.59); MONO% 11.2 % (1.7-9.3); MPV 10.9 FL (7.4-10.4); NEUT% 64.7 % (42.2-75.2); PLT 251 X1000 (130-400)
[2016-04-16 06:21] LABS: AGAP 16; ALBUMIN 3.3 g/dL (3.5-5.0); BUN 15 mg/dL (8-22); CALCIUM 8.4 mg/dL (8.8-10.2); CHLORIDE 106 mmol/L (98-107); COSMO 283; POTASSIUM 3.7 mmol/L (3.5-5.1); SODIUM 141 mmol/L (136-145); TCO2 19 mmol/L (25-35)
--- NOTE | 2016-04-16 06:32 | PROGRESS NOTE ---
DATE: 04/16/2016 SUBJECTIVE: No major issues. Reviewed notes from other physicians. OBJECTIVE: Vital Signs: Patient is currently afebrile. Her vital signs have been stable. General Examination: No acute distress. Alert, somewhat interactive, female, looks stated age. HEENT: Normocephalic, atraumatic. Pupils equal, round, and reactive to light. Mucous membranes moist. Oropharynx benign. Neck: Supple. Trachea midline. Cardiovascular: Regular rate and rhythm. Lungs: Grossly clear. Abdomen: Soft, nontender, nondistended. Extremities: Chronic wound noted in the left groin with some purulence. Right groin unchanged. Laboratory: White blood cell count 6, hematocrit is 30.3. Remainder of labs reviewed. ASSESSMENT/PLAN: An 80-year-old, female with chronic wound above an aortobifemoral graft. Chronic wound. At this time, continue nonoperative management. I did have my partner, Dr. Corrigan, come and see the patient for a 2nd opinion. He agrees off to do suppressive antibiotics. We will continue to follow with you. I suspect the fluid collection on the right side is a persistent lymphatic leak and we had drained it previously and it has reaccumulated so at this time, we will monitor it.
[2016-04-16] MEDS: HUMALOG SUBQ SCH ×4 (06:42→21:46)
--- NOTE | 2016-04-16 07:20 | PROGRESS NOTE ---
DATE: 04/16/2016 HISTORY OF PRESENT ILLNESS: The patient has an infection of the left groin area, which sits right on top of an aortofemoral graft. I think undoubtedly the graft is involved. Previously, the patient has had an infection in the same area, and Morganella was isolated. MEDICATIONS: Currently, the patient is on vancomycin and Zosyn pending culture results. The doses of the antibiotics have been modified because of the end-stage renal disease. PHYSICAL EXAMINATION: Vital Signs: Temperature is 98.3 degrees, pulse 95, respirations 18, blood pressure 159/87. General: This is an ill-appearing elderly female. She is in no acute distress. Lungs: Clear to auscultation. Cardiovascular: Heart tones were distant, but it appeared that the patient's heart rate was irregular. Abdomen: Soft and nontender. Extremities: In the left groin area, there is a wound, which has gross pus coming from it. There is no odor to the pus. In the right groin, there is no area of drainage, and I did not feel any masses there. However, the patient is extremely obese. LABORATORY AND X-RAY: Creatinine is 1. GFR is greater than 60. CBC shows a white count of 6360, hemoglobin 9.9, and platelet count 251,000. Culture taken from the left groin, blood cultures, and a urine culture are all negative at this time. ASSESSMENT AND PLAN: The patient has a left groin wound infection, which I am sure involves the aortofemoral graft in that area. My plan will be to treat with the antibiotics intensely for 6 weeks, and then put the patient on a shelter oral antibiotics such as Septra DS daily or possibly some other choice. COMORBIDITIES: Include peripheral vascular disease, diabetes mellitus, and end-stage renal disease.
--- NOTE | 2016-04-16 07:54 | PROGRESS NOTE ---
DATE: 04/16/2016 SUBJECTIVE: She is more alert today. Eyes open. She responds verbally. OBJECTIVE: Vital Signs: Blood pressure 159/87, heart rate 95, respiration 18, afebrile. Intake 2.4 L. Output 2.1 L. General: Elderly woman, no distress. Skin: Warm and dry. HEENT: Conjunctivae are pale. Heart: Regular. Lungs: Have equal breath sounds. No crackles. Abdomen: Soft, nontender. Bowel sounds present. Extremities: Have no edema. LABORATORY DATA: Sodium 141, potassium 3.7, chloride 106, bicarbonate 19, BUN 15, creatinine 1.0. IMPRESSION: Acute kidney injury. Resolved. I will sign off at this time. If I can be of further assistance, please do not hesitate to call.
[2016-04-16] MEDS: COREG PO SCH ×2 (08:44→21:40)
[2016-04-16] MEDS: HEPARIN SUBQ SCH ×2 (08:45→21:40)
--- NOTE | 2016-04-16 13:43 | PROGRESS NOTE ---
DATE: 04/16/2016 Ms. Robins says she feels good. No pain at this time. Breathing comfortably. She has been eating but does not have much appetite. She still has a Gracia catheter, still has not gotten out of bed.Vital signs: Temperature 98.5 degrees, pulse 85, respirations 20, blood pressure 150/78. CVP less than 6 cm. Lungs: Clear in all lung cook. Cardiovascular: Regular rhythm and rate without murmur or S3. Abdomen: Soft. Skin warm and dry. Good urine output 2100 mL. This is an 80-year-old, black female who presented to the emergency room on 04/15/2016 complaining of weakness and hypotension. According to her past medical records, it appears Dr. Whaley has recently treated for a left groin infection back in October 2015 that extended down to her graft. Patient had vascular surgery performed Dr. Teo Ayala. At this time she has had abdominal aortic aneurysm repair and iliofemoral bypass. Also had left femoral popliteal bypass. According to nursing staff, patient has seen Dr. Sargent and has been receiving Rocephin ongoing treatment. Upon examination in the emergency room patient's initial blood pressure was 90/62, MAP was 69, had a low-grade fever of 99. She does have purulent drainage to the wound in the left groin and noted to be drowsy on examination when she was admitted. PAST MEDICAL HISTORY: Includes: 1. Hypertension. 2. Atrial fibrillation. 3. Abdominal aortic aneurysm repair. 4. CVA with persistent left-sided weakness. 5. Diabetes mellitus type 2. 6. Left leg [id number] amputation. 7. Contracture left hand and left arm. 8. Cataracts. 9. Visual problems. 10. Previous right groin seroma. 11. Previous left groin infection extended down to her graft recently been treated and follow up with Dr. Whaley. 12. So she was admitted with sepsis left groin wound. Obtained wound culture. She appears comfortable today. ASSESSMENT AND PLAN: 1. Patient infection left groin area that sits right on top of her aortofemoral graft. I think the graft Dr. Whaley feels is involved. Previously patient has had infection in the same area. Morganella was isolated. Patient on vancomycin and Zosyn pending culture results. The doses of antibiotics have been modified because of end-stage renal disease. The plan is to treat with antibiotics intensely for 6 weeks and then put the patient on long-term oral antibiotics such as Septra DS or possibly some other choice. 2. Acute kidney injury which is resolved and Dr. Webb has signed off. So renal function has improved. 3. Surgery following. No operative issues at this point. Dr. Corrigan and Dr. Ware evaluated infective aortofemoral graft, however no complicating features. No bleeding so continue IV antibiotics. 4. Large right inguinal benign appearing fluid collection seroma, watching. 5. Dementia. 6. Cerebrovascular accident with left-sided hemiparesis. LABORATORY DATA: Review of recent lab: White count 6360, hematocrit 30, platelet count 251,000, sodium 141, potassium 3.7, chloride 106, bicarb 19, BUN 15, creatinine 1.0, blood sugar 106-121, phosphorus 2.1, calcium 8.4. REVIEW OF CURRENT ORDERS: She is on vancomycin and Zosyn. She is on heparin 5000 units subcutaneous q. 12 hours. I do not see any changes at this point.
[2016-04-16] MEDS ORDERED: VANCOMYCIN 1,350 MG in NS 250 ML IV SCH (20:00)
[2016-04-17] MEDS: ZOSYN 2.25 GM/NS 50 ML IV SCH ×3 (00:08→12:05)
[2016-04-17] MEDS: NS 1,000 ML IV SCH ×3 (02:24→14:08)
--- NOTE | 2016-04-17 05:50 | PROGRESS NOTE ---
DATE: 04/17/2016 SUBJECTIVE: No major changes. Reviewed notes from other physicians. OBJECTIVE: Vital Signs: Patient is currently afebrile. Vital signs have been stable. General Examination: No acute distress. Interactive female who looks her stated ageHEENT: Normocephalic and atraumatic. Pupils equal, round and reactive to light. Mucous membranes moist. Oropharynx benign. Neck: Supple. Trachea midline. Cardiovascular: Regular rate and rhythm. Lungs: Grossly clear. Abdomen: Soft, nontender, nondistended. Extremities: Chronic wound noted to the left groin unchanged. Right groin unchanged. LABORATORY: Pending. MICROBIOLOGY: Wound has gram negative rods. ASSESSMENT/PLAN: An 80-year-old female with chronic wound above aorta bi-fem graft with chronic wound at this time. Continue nonoperative management. I had my partner Dr. Corrigan come by and see the patient who agrees with this plan. At this time , we will follow peripherally. [facility]
[2016-04-17] MEDS: HUMALOG SUBQ SCH ×2 (06:13→12:01)
[2016-04-17 06:33] LABS: HEMATOCRIT 30.8 % (37.0-47.0); HEMOGLOBIN 10.2 g/dL (12.0-16.0); MCH 30.7 PG (27-31); MCHC 33.1 g/dL (33-37); MCV 92.8 FL (81-99); MPV 11.4 FL (7.4-10.4); RBC 3.32 XMIL (4.2-5.4)
[2016-04-17 06:40] LABS: AGAP 19; ALBUMIN 3.3 g/dL (3.5-5.0); BUN 8 mg/dL (8-22); CALCIUM 8.3 mg/dL (8.8-10.2); CHLORIDE 100 mmol/L (98-107); COSMO 273; POTASSIUM 3.3 mmol/L (3.5-5.1); SODIUM 137 mmol/L (136-145); TCO2 18 mmol/L (25-35)
--- NOTE | 2016-04-17 09:31 | PROGRESS NOTE ---
DATE: 04/17/2016 PRESENT ILLNESS: The patient has an E. coli infected left groin area which involves the underlying graft. The patient also has same organism causing a urinary tract infection. MEDICATIONS: The patient currently is on vancomycin and Zosyn. PHYSICAL EXAMINATION: Vital Signs: Temperature is 98.8, pulse 84, respirations 18, blood pressure 175/75. General: This is an ill-appearing, elderly female. She is in no acute distress. Lungs: Clear to auscultation. Cardiovascular: Heart rate was regular. Abdomen: Soft and nontender. : In the left groin, there is a purulent drainage coming from the area where the graft is in place. LAB AND X-RAYS: CBC shows a white count of 6130, hemoglobin 10.2, and platelet count 273,000. Creatinine 0.9. GFR is greater than 60. Both the urine and the wound are growing E. coli. ASSESSMENT AND PLAN: I plan to treat the patient for a total of 6 weeks with p.o. Levaquin 500 mg daily and then switch her to Septra double-strength 1 tablet daily on a chronic basis. Hopefully, to keep any residual infection under control. I plan to see the patient back in my office in 6 weeks at which time I will change her dose from Levaquin 500 mg to Levaquin 250 mg daily. While the patient is getting the Levaquin by mouth, I have ordered a CBC and a creatinine to be drawn every week for 6 weeks.
[2016-04-17] MEDS: HEPARIN SUBQ SCH (09:58)
[2016-04-17] MEDS: COREG PO SCH (09:58)
[2016-04-17 11:30] VITALS: BP 177/95
--- NOTE | 2016-04-17 15:24 | DISCHARGE SUMMARY ---
ADMISSION DATE: 04/15/2016 DISCHARGE DATE: 04/17/2016 HOSPITAL COURSE: This is an 80-year-old, who was admitted on 04/15/2016, who presented to the emergency room on the fourth with complaints of weakness and hypotension according to the past medical records. Dr. Whaley has followed her. She has had a left groin infection which was superimposed or over left graft. Suspect there is some involvement. She was put on 6 weeks of antibiotics; I am not sure whether she was able to complete these. We finally did get a culture at this time that grew out E. coli which was sensitive to Levaquin. The decision is to continue to treat her with antibiotics for another 6 weeks, and then probably indefinitely after that she will follow up with Dr. Whaley in a week. The vascular surgeon that did the original surgery was Dr. Teo Peres. She had an abdominal aortic aneurysm repair, ileofemoral bypass, left femoral- popliteal bypass. She had a seroma that was slow to resolve on the right side. Clinically she showed improvement and remained afebrile. Abdominal and pelvic CT done on 04/15/2016: No change in relatively large benign-appearing fluid collection in the right groin. Significant bilateral nephrolithiasis, but no evidence of obstruction. Dr. Malave was consulted because of renal insufficiency, and she had some acute kidney injury which resolved. She had this injury in the context of sepsis; she felt she might have had a little bit of acute tubular necrosis, but this did resolve with fluids and conservative therapy. [place] she is ready go back to the longterm on 04/17/2016. DISCHARGE MEDICATIONS: She will take: 1. Levaquin 500 mg p.o. daily for another 6 weeks. She will follow up with Dr. Whaley. 2. She will take Coreg 25 mg b.i.d. 3. She was getting heparin here subcutaneous; I think we will stop that. 4. She will stop the Zosyn and stop the vancomycin. PREVIOUS MEDICATIONS: 1. Aspirin 81 mg a day. 2. Cardizem CD 240 mg a day. 3. Pepcid 20 mg b.i.d., 4. Neurontin 300 mg daily. 5. Glucotrol 5 mg a day. 6. Linzess 145 mcg capsule; I think she was taking that daily. 7. Lisinopril 10 mg a day. 8. Melatonin 3 mg at bedtime. 9. Actos 15 mg daily. 10. Klor-Con M 20 mEq daily. 11. Florastor, which is saccharomyces 250 mg p.o. b.i.d. 12. Trazodone ER 75 mg at bedtime.
[2016-04-17] MEDS ORDERED: VANCOMYCIN 1,350 MG in NS 250 ML IV SCH (20:00)
== END 2016-04-17 16:47 | DRG 314 ==
LOC: EDBD → ED 15:46 → EDIPHOLD 04-15 00:11 → ICU 04-15 00:32 → 4N 04-15 16:57
PROVIDERS: ATTEND Emergency Medicine
DX: T82.7XXA Infection and inflammatory reaction due to other cardiac and vascular devices, implants and grafts, initial encounter (principal); A41.9 Sepsis, unspecified organism; R65.20 Severe sepsis without septic shock; N17.9 Acute kidney failure, unspecified; E11.22 Type 2 diabetes mellitus with diabetic chronic kidney disease; E11.51 Type 2 diabetes mellitus with diabetic peripheral angiopathy without gangrene; I69.354 Hemiplegia and hemiparesis following cerebral infarction affecting left non-dominant side; I48.91 Unspecified atrial fibrillation; E86.9 Volume depletion, unspecified; I12.9 Hypertensive chronic kidney disease with stage 1 through stage 4 chronic kidney disease, or unspecified chronic kidney disease; L76.34 Postprocedural seroma of skin and subcutaneous tissue following other procedure; G30.9 Alzheimer's disease, unspecified; F01.50 Vascular dementia, unspecified severity, without behavioral disturbance, psychotic disturbance, mood disturbance, and anxiety; B96.20 Unspecified Escherichia coli [E. coli] as the cause of diseases classified elsewhere; E66.9 Obesity, unspecified; N18.9 Chronic kidney disease, unspecified; Z87.891 Personal history of nicotine dependence; Z82.3 Family history of stroke; Z79.899 Other long term (current) drug therapy; Z89.512 Acquired absence of left leg below knee; Z79.82 Long term (current) use of aspirin; Z83.3 Family history of diabetes mellitus; Z82.49 Family history of ischemic heart disease and other diseases of the circulatory system; F02.80 Dementia in other diseases classified elsewhere, unspecified severity, without behavioral disturbance, psychotic disturbance, mood disturbance, and anxiety; Z68.32 Body mass index [BMI] 32.0-32.9, adult
CPT/HCPCS: 71010; 74176; 80053; 80069; 81001; 82550; 82570; 82948; 83036; 83605; 84156; 84300; 84484; 85025; 85027; 85610; 85730; 87040; 87070; 87075; 87077; 87088; 87186; 87205; 93005; 96365; 96366; 96367; J1644; J1815; J2543; J3370; J7030; J7050

== ENCOUNTER 2016-06-22 13:35 | Inpatient (IN) | payer OTHER ==
[2016-06-22] MEDS ORDERED: D5 1/2 NS 1,000 ML IV ONE (14:26)
--- NOTE | 2016-06-22 14:33 | PROVIDER DOCUMENTATION ---
HPI-Neurological Disorder - General Chief Complaint: Weakness Stated Complaint: decreased LOC Time Seen by Provider: 06/22/16 14:21 Source: EMS, RN notes reviewed, detention records Unable to obtain history due to:: altered Allergies/Adverse Reactions: Patient Allergies Allergy/AdvReac Type Severity Reaction Status Date / Time tuberculin,PPD,multi-puncture Allergy Unknown Verified 04/27/16 16:27 Home Medications: Home Medication List Medication Instructions Recorded Confirmed Last Taken Type Carvedilol [Coreg] 25 mg PO BID 10/11/15 04/27/16 04/27/16 08:00 History Clonidine HCl 0.1 mg PO Q8H PRN PRN 10/11/15 04/27/16 Unknown History Gabapentin [Neurontin] 300 mg PO DAILY 10/11/15 04/27/16 04/27/16 08:00 History Glipizide [Glucotrol] 5 mg PO DAILY 10/11/15 04/27/16 04/27/16 08:00 History Lisinopril 10 mg PO DAILY 10/11/15 04/27/16 04/27/16 08:00 History Pioglitazone [Actos] 15 mg PO DAILY 10/11/15 04/27/16 04/27/16 08:00 History Saccharomyces Boulardii [Florastor] 250 mg PO BID 10/11/15 04/27/16 04/27/16 08: 00 History Aspirin 81 mg PO DAILY #30 10/18/15 04/27/16 04/27/16 08:00 Rx Baclofen 10 mg PO DAILY PRN #30 10/18/15 04/27/16 04/27/16 08:00 Rx Diltiazem C.d. [Cardizem Cd] 240 mg PO DAILY #30 capsule 10/18/15 04/27/1604/27 08:00 Rx Linaclotide [Linzess] 145 mcg PO DAILY@0700 #30 capsule 10/18/15 04/27/16 08:00 Rx Famotidine [Pepcid] 20 mg PO BID 04/14/16 04/27/16 04/27/16 08:00 History Melatonin 3 mg PO HS 04/14/16 04/27/16 04/26/16 21:00 History Potassium Chloride [Klor-Con M20] 20 meq PO DAILY 04/14/16 04/27/16 04/27/16 08: 00 History Trazodone E.r. [Oleptro ER] 75 mg PO QHS 04/14/16 04/27/16 04/26/16 21:00 History Acetaminophen Liquid [Tylenol 650 mg PO Q6H PRN PRN #0 udc 04/17/16 04/27/16 Unknown Rx Liquid] Carvedilol [Coreg] 25 mg PO BID #0 tablet 04/17/16 04/27/16 04/27/16 08:00 Rx Levofloxacin [Levaquin] 500 mg PO DAILY #40 tablet 04/17/16 04/27/16 04/27/16 08 :00 Rx - History of Present Illness-Neuro Nature of Presenting Problem: patient is a 81 y/o F that presents to ER via EMS from local [facility] care facility for decrease in mental status from her normal. 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 she has a site that is draining from her suprapubic area. She hasn't ate or drink in 3 days. Severity: reports: moderate, severe Onset/Duration: reports: gradual, 3 days ago Timing: reports: still present, constant Context: denies: recent infection, fever, paresthesia, facial droop Character of Altered Mental Status: reports: confused, decreased responsiveness Any recent trauma/injury?: reports: none Cognitive Baseline: alert but disoriented Gait Baseline: unable to walk Associated Symptoms: denies: headache, decreased ability to walk or stand, fainting, confusion, neck/back pain, fever/chills, nausea, vomiting Similar Symptoms Previously?: Yes Recently seen or treated by another doctor?: No Review of Systems - Adult - REVIEW OF SYSTEMS - ADULT ROS:: unobtainable per condition Constitutional: denies: chills, fever Eyes: reports: no symptoms reported Ears, Nose, Mouth & Throat: denies: ear pain, sinus problem, throat pain, throat swelling Cardiovascular: reports: no symptoms reported Respiratory: denies: cough, shortness of breath, wheezing Gastrointestinal: denies: abdominal pain, diarrhea, nausea, vomiting Genitourinary: reports: no symptoms reported Musculoskeletal: reports: no symptoms reported Integumentary: reports: see HPI Neurological: reports: other (ams). denies: dizziness/vertigo, headache/ migraines, seizure Psychiatric: reports: no symptoms reported Endocrine: reports: no symptoms reported Hematologic/Lymphatic: reports: no symptoms reported Allergic/Immunologic: reports: no symptoms reported All Other Systems: Reviewed and Negative Past History - Adult - PAST MEDICAL HISTORY-ADULT Review of Records: reports: Old Records Reviewed, Nursing Assessment Review, Medications Reviewed Cardiovascular: reports: A-Fib, HTN, other (aaa) Neurological: reports: CVA, stroke deficits (left sided) Endocrine/Immune: reports: Diabetes - PRIOR SURGERIES/PROCEDURES Surgical/Procedure History: reports: hysterectomy, orthopedic (extremity) (left aka), other (breast biopsy, AAA) - IMMUNIZATION STATUS Childhood Immunizations: See Nurse Assessment Flu Vaccine: See Nurse Assessment - FAMILY HISTORY Family History: reviewed, not pertinent - SOCIAL HISTORY Smoking: cigarettes, less than 1 pack/day Living Situation: care facility Physical Exam- Neurological - Physical Exam-Neuro Exam Limited by: pt condition Initial Vital Signs Reviewed: Yes General Appearance: mild distress, other (chronic ill appearing) Eye Exam: bilateral eye: normal inspection, PERRL HENMT: normocephalic/atraumatic, moist mucous membranes, normal ENT inspection Head Injury: no evidence of injury. negative: ecchymosis Neck: normal inspection. negative: lymphadenopathy Respiratory: lungs clear, normal breath sounds, no respiratory distress, no accessory muscle use Cardiovascular: regular rate, rhythm, no gallop Abdominal Exam: normal bowel sounds, non tender, soft Extremity: no pedal edema, normal capillary refill, other (left AKA) Motor/Sensory: weak motor strength LUE. negative: sensory deficit Neurologic: motor weakness (left sided), other (contractures to left side) Integumentary: warm/dry, other (wound to left groin) Psych/Mental Status: other (decrease responsiveness, opens eyes but doesn't follow commands) Progress - PLAN OF CARE/RESULTS Progress/Plan/Lab Results: plan of care-labs, ct head, meds Vital Signs Temp Pulse Resp BP Pulse Ox 06/22/16 15:11 71 14 111/67 98 06/22/16 13:53 98 F 71 17 103/87 100 tuberculin,PPD,multi-puncture Allergy (Verified 04/27/16 16:27) Unknown Carvedilol [Coreg] 25 mg PO BID 10/11/15 Clonidine HCl 0.1 mg PO Q8H PRN PRN 10/11/15 Gabapentin [Neurontin] 300 mg PO DAILY 10/11/15 Glipizide [Glucotrol] 5 mg PO DAILY 10/11/15 Lisinopril 10 mg PO DAILY 10/11/15 Pioglitazone [Actos] 15 mg PO DAILY 10/11/15 Saccharomyces Boulardii [Florastor] 250 mg PO BID 10/11/15 Aspirin 81 mg PO DAILY #30 10/18/15 Baclofen 10 mg PO DAILY PRN #30 10/18/15 Diltiazem C.d. [Cardizem Cd] 240 mg PO DAILY #30 capsule 10/18/15 Linaclotide [Linzess] 145 mcg PO DAILY@0700 #30 capsule 10/18/15 Famotidine [Pepcid] 20 mg PO BID 04/14/16 Melatonin 3 mg PO HS 04/14/16 Potassium Chloride [Klor-Con M20] 20 meq PO DAILY 04/14/16 Trazodone E.r. [Oleptro ER] 75 mg PO QHS 04/14/16 Acetaminophen Liquid [Tylenol Liquid] 650 mg PO Q6H PRN PRN #0 udc 04/17/16 Carvedilol [Coreg] 25 mg PO BID #0 tablet 04/17/16 Levofloxacin [Levaquin] 500 mg PO DAILY #40 tablet 04/17/16 Laboratory 06/22/16 06/22/16 06/22/16 15:09 14:37 14:37 WBC RBC Hgb Hct MCV MCH MCHC RDW Std Deviation Plt Count MPV Immature Gran % (Auto) Neut % (Auto) Lymph % (Auto) Bollinger % (Auto) Eos % (Auto) Baso % (Auto) Immature Gran # (Auto) Neut # (Auto) Lymph # (Auto) Bollinger # (Auto) Eos # (Auto) Baso # (Auto) Sodium 130 L Potassium 4.7 Chloride 99 Carbon Dioxide 20 L Anion Gap 11 BUN 20 Creatinine 1.1 H Estimated GFR/1.73 m2 58 BUN/Creatinine Ratio 18 Glucose 93 Calculated Osmolality 263 Calcium 8.9 Total Bilirubin 0.39 AST 17 ALT 6 L Alkaline Phosphatase 78 Total Protein 6.9 Albumin 2.9 L Globulin 4.0 Albumin/Globulin Ratio 0.7 Thyroxine (T4) 7.40 Urine Source CATH Urine Color YELLOW Urine Turbidity CLEAR Urine pH 5.5 Ur Specific Rena Lara 1.034 Urine Protein 50 A Ur Glucose (Stick) NEGATIVE Ur Ketones (Stick) TRACE A Urine Blood MODERATE A Urine Nitrite NEGATIVE Urine Bilirubin SMALL A Urobilinogen Dipstick 3 A Urine Leukocytes SMALL A 06/22/16 14:37 WBC 4.95 RBC 4.02 L Hgb 11.6 L Hct 35.0 L MCV 87.1 MCH 28.9 MCHC 33.1 RDW Std Deviation 16.5 H Plt Count 260 MPV 10.4 Immature Gran % (Auto) 0.4 Neut % (Auto) 56.2 Lymph % (Auto) 31.5 Bollinger % (Auto) 8.5 Eos % (Auto) 3.0 Baso % (Auto) 0.4 Immature Gran # (Auto) 0.02 Neut # (Auto) 2.78 Lymph # (Auto) 1.56 Bollinger # (Auto) 0.42 Eos # (Auto) 0.15 Baso # (Auto) 0.02 Sodium Potassium Chloride Carbon Dioxide Anion Gap BUN Creatinine Estimated GFR/1.73 m2 BUN/Creatinine Ratio Glucose Calculated Osmolality Calcium Total Bilirubin AST ALT Alkaline Phosphatase Total Protein Albumin Globulin Albumin/Globulin Ratio Thyroxine (T4) Urine Source Urine Color Urine Turbidity Urine pH Ur Specific Rena Lara Urine Protein Ur Glucose (Stick) Ur Ketones (Stick) Urine Blood Urine Nitrite Urine Bilirubin Urobilinogen Dipstick Urine Leukocytes Orders Category Date Time Status [facility]. [facility] Communication Order DIRECTED Care 06/22/16 14:32 Active HEAD W/O CONTRAST [CT] Stat Exams 06/22/16 14:27 Draft CBC WITH ELECTRONIC DIFF [HEME] Stat Lab 06/22/16 14:37 Completed CMP [COMPREHENSIVE METABOLIC PANEL] [CHEM] Stat Lab 06/22/16 14:37 Completed T4 Stat Lab 06/22/16 14:37 Completed UA NIMS W/REFLEX CULT [URINALYSIS] Stat Lab 06/22/16 15:09 Results WOUND CULTURE INC GRAM STAIN [RM] Routine Lab 06/22/16 15:09 Received Dextrose 5%-0.45% NaCl Inj [D5 1/2 Ns] 1,000 ml Med 06/22/16 14:26 Discontinued IV Wide Open hospitalist will be paged for admission - EKG 1 Time of EKG reading by physician:: 14:13 EKG Read and Signed by:: Won Philippe EKG Interpretation (*Must complete 3 of following elements*): Abnormal Rate: 70 Rhythm: Sinus Rhythm with PACs [place]: normal [place] Interval: normal ST Wave: normal - CT/MRI 1 CT Study: Head Impression: Abnormal CT Results: old large right cerebral hemisphere infarction, microvascular changes - CONSULTS/PCP/HOSPITALIST Notification #1 *Consult/PCP/Hospitalist*: ( 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) Time Discussed: 15:38 Consult Disposition: Will see in ED, Admit Departure - Departure Time of Disposition Order: 15:38 DIAGNOSIS: Failure to thrive in adult, Decreased responsiveness Altered mental status Qualifiers: Altered mental status type: unspecified Qualified Code(s): R41.82 - Altered mental status, unspecified Disposition: ADMITTED INPATIENT 09 Certified Medical Emergency: Emergent Condition: Stable Attestation - Scribe Verification/Attestation Scribe:: Boby Medina Acting as Scribe for:: Won Philippe Scribe documention review:: This chart was documented by a scribe and accurately reflects the service the provider performed and the decisions made by the provider. Physician Attestation - Physician Attestation I, the provider, attest to the following statement:: Won Philippe Physician documentation Attestation:: This documentation recorded by the scribe accurately reflects the service I personally performed and the decisions made by me.
[2016-06-22 14:37] LABS: MANUAL DIFF NEEDED? NO
[2016-06-22 14:56] LABS: BASO% 0.4 % (0.0-0.8); EOS# 0.15 X1000 (0.0-0.7); HEMOGLOBIN 11.6 g/dL (12.0-16.0); IMM GRAN# 0.02 X1000 (0.0-0.04); IMM GRAN% 0.4 % (0.0-0.5); LYMPH# 1.56 X1000 (1.2-3.4); LYMPH% 31.5 % (20.5-51.1); MCH 28.9 PG (27-31); MCHC 33.1 g/dL (33-37); MCV 87.1 FL (81-99); MONO# 0.42 X1000 (0.11-0.59); MONO% 8.5 % (1.7-9.3); MPV 10.4 FL (7.4-10.4); NEUT% 56.2 % (42.2-75.2); PLT 260 X1000 (130-400); RBC 4.02 XMIL (4.2-5.4)
[2016-06-22 14:57] LABS: ALBUMIN 2.9 g/dL (3.5-5.0); CALCIUM 8.9 mg/dL (8.8-10.2); POTASSIUM 4.7 mmol/L (3.5-5.1); TOTAL BILIRUBIN 0.39 mg/dL (0.20-1.00); TOTAL PROTEIN 6.9 g/dL (6.3-8.3)
--- NOTE | 2016-06-22 15:07 | Diag Imaging Result Document ---
PROCEDURE NAME: HEAD W/O CONTRAST - 06/22/[address]: A CT dose reduction protocol was used. COMPARISON: None. FINDINGS: There is a large remote infarct at the right cerebral hemisphere in the middle cerebral artery territory. This predominantly affects the temporal-parietal lobe. There is some extension into the frontal lobe. There is moderately extensive periventricular white matter chronic microvascular disease bilaterally, right greater than left. No intracranial mass or hemorrhage. The skull is intact. The sinuses, mastoids, and middle ears are clear. IMPRESSION: 1. Large old right cerebral hemisphere infarction. 2. Chronic microvascular disease. 3. No acute findings. [facility]
[2016-06-22 15:23] LABS: URINE SOURCE CATH
[2016-06-22 15:27] LABS: BILIRUBIN URINE SMALL (NEGATIVE); BLOOD URINE MODERATE (NEGATIVE); COLOR YELLOW; GLUCOSE URINE NEGATIVE (NEGATIVE); LEUKOCYTES URINE SMALL (NEGATIVE); NITRITE URINE NEGATIVE (NEGATIVE); PH URINE 5.5; PROTEIN URINE 50 mg/dL (NEGATIVE); SP GRAVITY URINE 1.034; TURBIDITY URINE CLEAR (CLEAR); UROBILINOGEN URINE 3 mg/dL (NORMAL)
[2016-06-22 15:50] LABS: UR EPITHELIAL CELLS <10 /HPF (<10); URINE BACTERIA NEGATIVE /HPF; URINE CULTURE NEEDED? YES; URINE MICRO REVIEW NEEDED? YES; URINE RBC TNTC /HPF (<10); URINE WBC <10 /HPF (<10)
[2016-06-22 15:54] LABS: URINE CASTS NONE SEEN
[2016-06-22] MEDS ORDERED: VANCOMYCIN IV PER PHARMACY MISC SCH (16:45)
[2016-06-22] MEDS ORDERED: VANCOMYCIN 1,650 MG in NS 250 ML IV ONE (18:00)
[2016-06-22] MEDS ORDERED: ZOFRAN IV PRN (18:54)
[2016-06-22] MEDS ORDERED: SODIUM CHLORIDE 0.9% INJ SCH (18:54)
[2016-06-22] MEDS: NS 1,000 ML IV SCH (19:31)
[2016-06-22] MEDS: PROTONIX IV SCH (19:31)
[2016-06-22] MEDS: ZOSYN 3.375 GM/NS 50 ML IV SCH (20:04)
--- NOTE | 2016-06-22 20:47 | Diag Imaging Result Document ---
PROCEDURE NAME: CHEST-PORTABLE - 06/22/2016 SINGLE FRONTAL RADIOGRAPH OF THE CHEST: COMPARISON: 04/27/2016. FINDINGS: There is evidence of prior granulomatous disease, stable. Inspiration is suboptimal. The lungs are grossly clear. There is stable cardiomegaly. Central vasculature is unremarkable. IMPRESSION: Stable cardiomegaly. No definite acute pathology by plain radiograph.
[2016-06-22] MEDS: HUMULIN R SUBQ SCH (21:00)
--- NOTE | 2016-06-22 22:03 | HISTORY AND PHYSICAL ---
PRIMARY CARE PROVIDER: Dr. Alex Pérez at [facility]. CHIEF COMPLAINT: Weakness, decreased appetite. Not eating over the last 3 days. HISTORY OF PRESENT ILLNESS: Ms. Robins is an 80-year-old, female who presented from rehab with reports of decreased level of consciousness, weakness, and decreased appetite over the last 3 days with a site of drainage in the left groin area that has purulent drainage. The patient is currently essentially nonverbal with expressive aphasia, unable to obtain much information from her and information has been obtained through past medical record and transfer records from facility. On admission, she was found to have a white blood cell count of 4000, she is afebrile, but there is an area in the left groin that has a significant amount of purulent drainage with a foul smell. This drainage has been sent for culture, and she will be started on broad-spectrum antibiotics. Given her altered mental status or decreased mentation, she was sent for head CT which only showed a large old right cerebral hemisphere infarct, but no new findings. She was verbal. I am not sure she said her name, but she said something. She opened her eyes, and she wiggled her right toe. That was as far as it went as far as neuro assessment, which could be close to her baseline. She does appear to be somewhat dehydrated, so she will receive IV fluid hydration. Her albumin level is low. She has a severe protein calorie malnutrition and a dirty UA, but it is negative for bacteria, negative for nitrites. It does show some small leukocytes and present yeast, but that is about it. We will admit her to the medical floor , give her IV fluid hydration, put an NG tube for enteral nutrition and followup with blood cultures, the wound culture of left groin and continue with positive broad-spectrum antibiotics. PAST MEDICAL HISTORY: Hypertension, atrial fibrillation, abdominal aortic aneurysm, status post repair, CVA, with left arm contracture. 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 Whaley. She was recently admitted in April of this year and was followed for a left groin abscess that had E. coli infection. She was followed with Addi and was to follow up with Dr. Whaley. SURGICAL HISTORY: 1. Hysterectomy. 2. Status post vascular intervention of the left lower extremity which according to the previous medical record was a left [id number] popliteal graft bypass. 3. Status post aspiration of right groin seroma in October 2015. 4. Abdominal aortic aneurysm repair with ileofemoral bypass. SOCIAL HISTORY: Currently a resident at [facility]. Has had tobacco abuse in the past. Unable to confirm alcohol or illicit drug use. FAMILY HISTORY: Unable to obtain. ALLERGIES: Tuberculin, PPD. HOME MEDICATIONS: Currently is being verified, but what is currently listed most recent is Actos, Cymbalta 60 mg twice a day, Pepcid 20 twice a day, melatonin 3 mg at night, trazodone 75 mg at night, potassium, Coreg, but all of these are having to be reverified. REVIEW OF SYSTEMS: Unable to obtain. LABORATORY DATA: White blood cells 4000, hemoglobin 11, hematocrit 35, platelet count 260,000. Sodium 130, potassium 4.7, BUN 11, creatinine is 1.1, glucose 93, liver enzymes normal, albumin 2.9. T4 7.4. Urinalysis 50 protein, trace ketones, moderate blood, small bilirubin, small leukocytes too numerous to count red blood cells and yeast. IMAGING: Head CT: Large old right cerebellar hemispheric infarct. Chronic microvascular disease. No acute findings. PHYSICAL EXAMINATION: VITAL SIGNS: Temperature 98 degrees, heart rate 71, respiratory rate 14, blood pressure 111/67, O2 saturation 98% on room air. HEIGHT, WEIGHT: 5 feet 6 inches tall, 184 pounds, BMI 29.7. GENERAL: Ms. Brendon Robins is an 81-year-old female who is essentially nonverbal. Did follow 1 simple command. HEENT: Atraumatic. Pupils were equal and reactive. Mucous membranes are dry. NECK: No JVD or carotid bruits noted. CARDIOVASCULAR: S1, S2. Regular rate and rhythm. No rubs, gallops, murmurs. PULMONARY: Clear to auscultate, bilateral breath sounds. Decreased in the bases. No accessory muscle use or work of breathing noted. NEUROLOGIC: Verbalized 1 word, but it was undecipherable. Wiggled right toes to command. Opened eyes, but it was unclear if she was focusing or tracing. Essentially did not follow any other commands. She has chronic left arm contracture. The left extremities status post amputation. EXTREMITIES: Right lower extremity, no edema noted. +2 dorsalis and +2 radial pulses. SKIN: Left groin area with what appears to be maybe an infected area where there was ingrown hair. There is purulent drainage that has a foul smell. It is kind of a milky color with a moderate amount. ASSESSMENT AND PLAN: 1. Left groin abscess. Culture sent. Broad-spectrum antibiotics have been ordered. We will follow up on culture. She is afebrile and normal white blood cell count. Apparently she had this back in April that was positive for Escherichia coli. This may have not fully resolved. We will consult Dr. Whaley if needed. 2. Severe protein calorie malnutrition. We will put nasogastric tube in, consult Nutrition for tube feeds. We will order a pre-albumin for in the morning. 3. Dehydration. We will do intravenous fluid hydration for now. 4. Possibly infectious encephalopathy secondary to left groin infection or this could be her baseline. She has got a history of a right hemispheric infarction which caused chronic contracture of the left arm and is essentially nonverbal. There are no acute findings on the head computed tomography. 5. Hyponatremia. She will be receiving normal saline intravenous fluids. 6. Diabetes mellitus type 2. We will do pattern blood glucoses. Sliding scale insulin. 7. Hypertension. Hold medications for now. 8. Deep venous thrombosis prophylaxis. Lovenox. 9. Gastrointestinal prophylaxis. Proton pump inhibitor. Dictated by TATI Patel for Freedom Houser MD [facility]
[2016-06-23] MEDS: ZOSYN 3.375 GM/NS 50 ML IV SCH ×5 (00:16→22:40)
[2016-06-23] MEDS: NS 1,000 ML IV SCH ×2 (04:59→14:08)
[2016-06-23 07:36] LABS: MANUAL DIFF NEEDED? NO
[2016-06-23 07:52] LABS: BASO% 0.4 % (0.0-0.8); EOS# 0.23 X1000 (0.0-0.7); EOS% 5.1 % (0.0-10.0); HEMATOCRIT 32.5 % (37.0-47.0); HEMOGLOBIN 10.7 g/dL (12.0-16.0); LYMPH# 1.29 X1000 (1.2-3.4); LYMPH% 28.4 % (20.5-51.1); MCH 28.5 PG (27-31); MCHC 32.9 g/dL (33-37); MCV 86.4 FL (81-99); MONO# 0.51 X1000 (0.11-0.59); MONO% 11.2 % (1.7-9.3); MPV 10.5 FL (7.4-10.4); NEUT% 54.9 % (42.2-75.2); PLT 258 X1000 (130-400); RBC 3.76 XMIL (4.2-5.4)
--- NOTE | 2016-06-23 07:58 | Diag Imaging Result Document ---
PROCEDURE NAME: CHEST/ABD TUBE PLACEMENT - 06/23/2016 SINGLE FRONTAL RADIOGRAPH OF THE LOWER CHEST AND UPPER ABDOMEN: COMPARISON: 06/22/2016. FINDINGS: The tip of the NG tube projects over the region of the gastroesophageal junction. It may not even be in the lumen of the stomach. Advancement of at least 7-8 cm is recommended. IMPRESSION: Tip of the NG tube projecting over the region of the GE junction. Advancement is recommended.
[2016-06-23 08:12] LABS: INR 1.04; PROTIME 10.6 Seconds (9.2-11.7); PTT 25.3 Seconds (22.0-36.0)
[2016-06-23 08:15] LABS: AGAP 12; ALBUMIN 2.7 g/dL (3.5-5.0); ALKALINE PHOSPHATASE 71 U/L (32-104); BUN 13 mg/dL (8-22); CALCIUM 8.2 mg/dL (8.8-10.2); CHLORIDE 107 mmol/L (98-107); COSMO 278; GOT 10 U/L (10-30); GPT < 5 U/L (10-36); MAGNESIUM 1.5 mg/dL (1.5-2.7); POTASSIUM 4.3 mmol/L (3.5-5.1); PREALBUMIN 11.3 mg/dL (20-40); SODIUM 139 mmol/L (136-145); TCO2 20 mmol/L (25-35); TOTAL BILIRUBIN 0.55 mg/dL (0.20-1.00); TOTAL PROTEIN 6.1 g/dL (6.3-8.3)
[2016-06-23] MEDS: HUMULIN R SUBQ SCH ×4 (08:29→21:08)
--- NOTE | 2016-06-23 08:29 | Diag Imaging Result Document ---
PROCEDURE NAME: CHEST-1 VIEW - 06/22/2016 SINGLE FRONTAL RADIOGRAPH OF THE LOWER CHEST AND UPPER ABDOMEN: COMPARISON: 06/22/2016. FINDINGS: There is a newly placed NG tube. The tip projects very near the GE junction. It may be in the distal esophagus or, perhaps, the cardia of the stomach. Advancement of at least 7-8 cm is recommended for more optimal position. Otherwise, limited views of the lungs are essentially stable as compared to the recent prior study. IMPRESSION: Interval placement of NG tube that is near the GE junction. Advancement is advised.
--- NOTE | 2016-06-23 08:46 | Diag Imaging Result Document ---
PROCEDURE NAME: ABDOMEN FLAT/UPRIGHT - 06/22/2016 FLAT AND UPRIGHT RADIOGRAPH OF THE ABDOMEN, 3 VIEWS: COMPARISON: 06/23/2016. FINDINGS: There are unremarkable bowel gas and stool patterns. There is no obstructive pattern. There is no evidence of large-volume free abdominal gas. There is a newly placed NG tube with the tip projecting over the region of the GE junction. It is possible that it is in the distal esophagus but may be in the cardia of the stomach. Advancement of at least 7-8 cm is recommended for more optimal position. IMPRESSION: Tip of the NG tube projecting over the GE junction. Advancement is recommended.
[2016-06-23] MEDS: LOVENOX SUBQ SCH (09:04)
--- NOTE | 2016-06-23 09:22 | Diag Imaging Result Document ---
PROCEDURE NAME: CHEST/ABD TUBE PLACEMENT - 06/23/2016 PLAIN RADIOGRAPH OF THE LOWER CHEST AND UPPER ABDOMEN: COMPARISON: 06/23/2016. FINDINGS: The tip of the NG tube is difficult to clearly identify due to soft tissue attenuation. However, it has probably been retracted even further as the last place it can be identified is at the mid mediastinum. Advancement of at least 19-20 cm is recommended. IMPRESSION: Persistent malpositioning of the NG tube that now appears to be even more retracted with the tip projecting over the mediastinum. Advancement is recommended.
--- NOTE | 2016-06-23 09:42 | EKG Report ---
Test Performed on : 06/22/2016 2:13:40 PM Test Reason : WEAKNESS Blood Pressure : / mmHG Vent. Rate : 070 BPM Atrial Rate : 070 BPM P-R Int : 170 ms QRS Dur : 078 ms QT Int : 442 ms P-R-T Axes : 036 009 036 degrees QTc Int : 477 ms Sinus rhythm. with premature atrial complexes. Otherwise normal ECG When compared with ECG of 14-APR-2016 22:29, premature atrial complexes. are now present Nonspecific T wave abnormality has replaced inverted T waves in Inferior leads Unconfirmed Result
--- NOTE | 2016-06-23 10:20 | Diag Imaging Result Document ---
PROCEDURE NAME: CHEST/ABD TUBE PLACEMENT - 06/23/2016 SINGLE FRONTAL RADIOGRAPH OF THE LOWER CHEST AND UPPER ABDOMEN: COMPARISON: 06/23/2016. FINDINGS: The NG tube has been advanced. Its tip now projects well below the diaphragm and is assumed to be within the stomach in the expected position. Limited views of the lung bases appear to be approximately stable. IMPRESSION: Interval advancement of the NG tube, which now appears to be in the expected position.
--- NOTE | 2016-06-23 15:33 | PROGRESS NOTE ---
DATE: 06/23/2016 SUBJECTIVE: This patient looks much better today. She is alert and she is following commands. She is not talking but she states that she is able to swallow. At this moment she just pulled her NG tube and I will ask for a bedside swallow evaluation to see if she can eat so we do not put the NG tube back. OBJECTIVE: Vital Signs: Temperature 97.6 degrees, pulse 82, respiratory rate 20, blood pressure 160/84, oxygen saturation 100% on room air. HEENT: Head normocephalic. No trauma. PERRLA. Neck: Supple. No JVD. No masses. Cardiovascular: RRR. No murmurs. Lungs: Clear to auscultation bilaterally. Decreased breath sounds at the bases. No work of breathing. Abdomen: Soft, obese, nontender, nondistended. Extremities: Right lower extremity with no edema noted. Left groin area has an infection and is draining purulent material, moderate amount. LABORATORY: WBC 4.5, hemoglobin 10.7, hematocrit 32.5, platelets 258,000. Sodium 139, potassium 4.3, chloride 107, bicarbonate 20, BUN 13, creatinine 0.9, glucose 96, calcium 8.2. ASSESSMENT AND PLAN: 1. Altered mental status, this is getting better. This could be multifactorial secondary to dehydration and infection. We will continue to monitor. She is getting better. She is following commands today. 2. Left groin abscess. So far the cultures have been negative. We will continue with the same antibiotics. 3. Severe protein calorie malnutrition. We put a nasogastric tube in but she pulled out the NG tube, this is the 2nd time that this happened. I will order a bedside swallow evaluation to see if she is able to eat. 4. Dehydration. This is better. Continue with IV fluids. 5. Hyponatremia. Resolved. 6. Type 2 diabetes. Continue with the same treatment. 7. Hypertension. We will continue with the same management for now. 8. DVT prophylaxis. We will do Lovenox. 9. GI prophylaxis. We will continue with proton pump inhibitors.
[2016-06-23] MEDS: PROTONIX IV SCH (16:51)
--- NOTE | 2016-06-23 17:36 | PALLIATIVE CARE CONSULTATION ---
DATE: 06/23/2016 REQUESTING PHYSICIAN: TATI Patel. REASON FOR CONSULTATION: Goals of care. HISTORY OF PRESENT ILLNESS: This is an 80-year-old female who has a past medical history of hypertension, atrial fibrillation, abdominal aortic aneurysm status post repair CVA, left AKA, diabetes mellitus. She was most recently admitted on 06/22/2016 after the long-term care facility in which she resides reported a decrease in her level of consciousness, weakness and a decreased appetite over 3 days. She also has purulent drainage from an abscess to the left groin. She was brought to the emergency room where she was found to have an altered mental status. A CT of the head revealed a large old right cerebral hemisphere infarct but no new findings. Her labs also revealed a protein calorie malnutrition. Currently she is lying in the hospital bed. Her family including her two power of attorneys are at the bedside. They state that she is currently at her baseline. She is able to voice her concerns. She does not appear to be in any acute distress. The palliative care team has been consulted to assist with goals of care. REVIEW OF SYSTEMS: Twelve point review of systems has been conducted and otherwise negative except those mentioned in the HPI. PAST MEDICAL HISTORY: See HPI. PAST SURGICAL HISTORY: 1. Left AKA. 2. Hysterectomy. 3. Abdominal aortic aneurysm repair. SOCIAL HISTORY: Prior to this admission she was a resident at [facility]. She has past tobacco use. Alcohol and drug use have been denied. FAMILY HISTORY: None pertinent. PHYSICAL EXAMINATION: General: This is an 81-year-old, female, who appears chronically ill. She does not appear to be in any acute distress. HEENT: Atraumatic, normocephalic. Neck: Supple. Cardiovascular: Normal S1, S2. Pulmonary: Lung sounds are diminished. Respirations are nonlabored. Abdomen: Soft. Bowel sounds are active. Extremities: There is a left AKA. Otherwise no edema and pulses are palpable. Neurologic: She is able to answer all yes or no questions and verbalize 1-2 word answers. She is able to follow commands. IMPRESSION: This is an 81-year-old, female with a past medical history as listed above in the HPI. The palliative care team was consulted to assist with goals of care. I met with the patient and her 4 siblings 2 which are dual mccord of senior attorney. After speaking with the patient and her family they have decided that her wish would be a DNR. A DNR level 1 order has been placed. They also state and the patient states that she is tired, that she only wants to be kept comfortable. I further discussed this with the patient and her physician. Ms. Robins has had limited p.o. intake for the past 3-4 days. She has had multiple NG-tube placed which she has removed on her own. When discussing PEG tube placement, she states that is not something that she would want. The family is agreeable to that. We discussed going back to the long-term care facility with hospice services. The family is also agreeable to that as well as the patient. As previously mentioned, Ms. Robins does not appear to be in any acute distress. I do believe that her palliative performance scale is 20%. A DNR level 1 order will be placed. The palliative care team will continue to follow daily until discharge. Thank you for this consultation. Dictated by TATI Mendoza for Hermann Ulrich MD
[2016-06-24] MEDS: ZOSYN 3.375 GM/NS 50 ML IV SCH ×2 (04:38→15:15)
[2016-06-24] MEDS: NS 1,000 ML IV SCH ×2 (04:39→15:15)
[2016-06-24] MEDS: HUMULIN R SUBQ SCH ×2 (06:43→15:14)
[2016-06-24 07:31] LABS: AGAP 14; BUN 8 mg/dL (8-22); CALCIUM 8.7 mg/dL (8.8-10.2); CHLORIDE 104 mmol/L (98-107); COSMO 275; MAGNESIUM 1.4 mg/dL (1.5-2.7); POTASSIUM 3.5 mmol/L (3.5-5.1); SODIUM 138 mmol/L (136-145); TCO2 20 mmol/L (25-35)
[2016-06-24] MEDS ORDERED: MAGNESIUM SULFATE 2 GM/S.W.I. 50 ML IV ONE (08:14)
[2016-06-24] MEDS: LOVENOX SUBQ SCH (09:14)
--- NOTE | 2016-06-24 12:21 | PALLIATIVE CARE PROGRESS NOTE ---
DATE: 06/24/2016 SUBJECTIVE: Ms. Robins is awake and alert. She is able to answer yes and no questions. OBJECTIVE: General: On physical exam, this is an 81-year-old, female, who does not appear to be in any acute distress. HEENT: Atraumatic, normocephalic. Neck: Supple. Cardiovascular: Normal S1, S2. Pulmonary: Lung sounds are diminished. Respirations are nonlabored. Abdomen: Soft. Bowel sounds are active. Extremities: Left AKA, otherwise no edema and pulses are palpable. ASSESSMENT/PLAN: Hospice consult. Order was placed this morning. I do believe the plan is to discharge back to the long-term care facility with comfort measures. Ms. Robins is a DNR level 1. The palliative care team will continue to follow as needed. Dictated by TATI Mendoza for Hermann Ulrich MD
--- NOTE | 2016-06-24 13:58 | DISCHARGE SUMMARY ---
ADMISSION DATE: 06/22/2016 DISCHARGE DATE: 06/24/2016 CONSULTATION: Pricilla Ken with Palliative Care. PERTINENT PROCEDURES: 1. Head CT showed large, old right cerebral hemisphere infarction, microvascular ischemic changes. No acute findings. 2. Abdominal x-ray showed that tip of the NG tube protruding over the GE junction, advancement was recommended. 3. Last and final chest x-ray showed interval advancement of NG tube which appears to be in the expected positions on 06/23/2016. DISCHARGE DIAGNOSES: 1. Altered mental status. Multifactorial secondary to dehydration and infection. Patient was on IV antibiotics. She is going back to [facility] with comfort measures. 2. Left groin abscess. Cultures so far were negative. Again she was continued on IV antibiotics while here in the hospital. The patient will not be going back to rehab with antibiotics. 3. Severe protein calorie malnutrition. NG tube was placed but the patient pulled it out twice. Again, going back to [facility] with comfort measures. 4. Dehydration. Patient was continued on IV fluids, improving. 5. Hyponatremia resolved. 6. Diabetes mellitus type 2. Continue with home medications. 7. Hypertension continue with home medicines. HOSPITAL COURSE: Briefly, Ms. Robins is an 81-year-old female presented from [facility] with reports of decreased level of consciousness, weakness, decreased appetite over the last 3 days with a left groin area that had purulent drainage. Patient on admission was essentially nonverbal with this burst of aphasia, unable to obtain much information from her, and the information was obtained through past medical records and transfer records from the facility. On admission she was found have a white count of 4000, afebrile, but there was an area in the left groin that had a significant amount of purulent drainage with a foul smell. That drainage was cultured. She was started on broad-spectrum antibiotics. She did have a head CT that showed a large old right cerebral hemisphere infarct but no acute findings. On admission she was verbal. It was not clear of her speech. She would open her eyes. She would wiggle her toes, but that is as far as the neural assessment they could obtain. Unsure if this was her baseline or not. No family was at the bed side. She did appear to be somewhat dehydrated. She was started on IV fluids. They did send a UA. She also had severe protein calorie malnutrition. NG tube was placed for enteral nutrition. However, the patient discontinued the NG tube twice on her own accord. Palliative care was brought in to speak with the patient and the family. They met with the patient, as well as 4 siblings and 2 of which were dual power of attorneys, and after speaking with the patient and her family they decided for her to be a DNR level 1, and they stated that the patient is tired and she only wants to be kept comfortable. Palliative care to go back to speak with the family on 06/24/2016 for a hospice consult. The plan is to discharge back to her long-term care facility at [facility] with comfort measures where she will remain a DNR level 1. PHYSICAL EXAMINATION: Vital signs: On discharge, temperature is 97.6 degrees, heart rate 82, respirations 20, blood pressure 160/84, O2 is 100% on room air. DISCHARGE DIET: NPO. DISCHARGE MEDICATIONS: 1. Clonidine 0.1 mg p.o. q.8 hours. 2. Glucotrol 5 mg p.o. daily. 3. Lisinopril 10 mg p.o. daily. 4. Neurontin 300 mg p.o. at bedtime. 5. Actos 15 mg p.o. at bedtime. 6. Cymbalta 60 mg p.o. b.i.d. 7. Pepcid 20 mg p.o. b.i.d. 8. Melatonin 30 mg p.o. at bedtime. 9. ER 75 mg p.o. at bedtime. 10. Klor-Con 20 mEq p.o. daily. 11. Aspirin 81 mg p.o. daily. 12. Cardizem CD 240 mg p.o. daily. 13. Linzess 145 mcg p.o. daily. 14. Liquid Tylenol 650 mg p.o. q.6 hours. 15. Coreg 25 mg p.o. b.i.d. FOLLOWUP: The patient is being discharged back to [facility] with comfort measures. DISCHARGE TIME: 30 minutes. Dictated by TATI Whiting for Freedom Houser MD [facility]
[2016-06-24 15:47] VITALS: BP 165/77
[2016-06-24] MEDS ORDERED: VANCOMYCIN 1,450 MG in NS 250 ML IV SCH (18:00)
== END 2016-06-24 15:00 | DRG 602 ==
LOC: ED 13:35 → EDIPHOLD 16:01 → 3N 06-23 11:14
PROVIDERS: ATTEND Internal Medicine
DX: L02.214 Cutaneous abscess of groin (principal); E43 Unspecified severe protein-calorie malnutrition; G93.40 Encephalopathy, unspecified; I69.954 Hemiplegia and hemiparesis following unspecified cerebrovascular disease affecting left non-dominant side; I48.91 Unspecified atrial fibrillation; Z89.612 Acquired absence of left leg above knee; E11.9 Type 2 diabetes mellitus without complications; E87.1 Hypo-osmolality and hyponatremia; Z66 Do not resuscitate; E86.0 Dehydration; I10 Essential (primary) hypertension; F17.210 Nicotine dependence, cigarettes, uncomplicated; R62.7 Adult failure to thrive; Z79.899 Other long term (current) drug therapy; Z79.82 Long term (current) use of aspirin; Z98.62 Peripheral vascular angioplasty status; Z68.29 Body mass index [BMI] 29.0-29.9, adult
CPT/HCPCS: 70450; 71010; 74000; 74020; 80048; 80053; 81001; 82550; 82948; 83735; 84100; 84134; 84436; 84443; 85025; 85610; 85730; 87040; 87070; 87077; 87088; 87186; 93005; 94761; 96365; 96366; 96367; 96372; 96375; C9113; J1650; J2543; J3370; J3475; J7030; J7050; S0164

== ENCOUNTER 2018-10-07 11:06 | Inpatient (IN) ==
[2018-10-07 13:08] LABS: PTT 27.1 Seconds (22.3-41.8)
[2018-10-07 13:10] LABS: BASO# 0.05 X1000 (0.0-0.2); BASO% 1.2 % (0.0-0.8); EOS# 0.12 X1000 (0.0-0.7); EOS% 2.9 % (0.0-10.0); HEMATOCRIT 17.6 % (37.0-47.0); HEMOGLOBIN 4.6 g/dL (12.0-16.0); LYMPH# 1.17 X1000 (1.2-3.4); LYMPH% 27.8 % (20.5-51.1); MCH 18.9 PG (27-31); MCHC 26.1 g/dL (33-37); MCV 72.1 FL (81-99); MONO# 0.44 X1000 (0.11-0.59); MONO% 10.5 % (1.7-9.3); MPV 10.5 FL (7.4-10.4); NEUT# 2.43 X1000 (1.4-6.5); NEUT% 57.6 % (42.2-75.2); PLT 283 X1000 (130-400); RBC 2.44 XMIL (4.2-5.4); RDW 18.1 % (11.5-14.5); WBC 4.21 X1000 (4.8-10.8)
--- NOTE | 2018-10-07 13:10 | EKG Report ---
Test Performed on : 10/07/2018 12:13:18 PM Test Reason : anemia Blood Pressure : / mmHG Vent. Rate : 070 BPM Atrial Rate : 070 BPM P-R Int : 168 ms QRS Dur : 074 ms QT Int : 426 ms P-R-T Axes : 072 003 000 degrees QTc Int : 460 ms Normal sinus rhythm. Normal ECG When compared with ECG of 22-JUN-2016 14:13, premature atrial complexes. are no longer present Inverted T waves have replaced nonspecific T wave abnormality in Inferior leads Unconfirmed Result
[2018-10-07 13:11] LABS: AGAP 12; ALBUMIN 3.5 g/dL (3.5-5.0); ALKALINE PHOSPHATASE 91 U/L (32-104); BUN 12 mg/dL (8-22); CALCIUM 9.3 mg/dL (8.8-10.2); CHLORIDE 106 mmol/L (98-107); COSMO 279; CREATININE 0.9 mg/dL (0.5-0.9); ESTIMATED GFR > 60; GLUCOSE 131 mg/dL (70-104); GOT 6 U/L (10-30); GPT < 5 U/L (10-36); POTASSIUM 4.1 mmol/L (3.5-5.1); SODIUM 139 mmol/L (136-145); TCO2 21 mmol/L (25-35); TOTAL BILIRUBIN 0.17 mg/dL (0.20-1.00); TOTAL PROTEIN 7.1 g/dL (6.3-8.3)
[2018-10-07] MEDS ORDERED: NS 500 ML IV ONE (13:17)
[2018-10-07] MEDS ORDERED: NS 250 ML IV ONE (13:18)
[2018-10-07] MEDS ORDERED: PROTONIX IV ONE (13:40)
[2018-10-07] MEDS ORDERED: SODIUM CHLORIDE 0.9% INJ ONE (13:40)
[2018-10-07 14:05] LABS: ANISOCYTOSIS 1+; HYPOCHROM 3+; LYMPHS 36 % (21-51); MICROCYTOSIS 2+; MONO 4 % (1-9); NRBC 1 % (0-0); SEGS 60 % (42-75)
--- NOTE | 2018-10-07 14:13 | Diag Imaging Result Doc PS360 ---
CT ABD/PELVIS W/IV CONT ONLY - 10/07/2018 INDICATION: RLQ abd pain/tenderness, anemia COMPARISON: 10/10/2016 FINDINGS: There is linear atelectasis in the lung bases. There is cardiomegaly. Stable cholecystectomy clips. There are several nonobstructing stones in the right kidney, and a couple in the left side as well. This measures up to about 6 mm. No hydronephrosis or hydroureter. There is a fusiform infrarenal abdominal aortic aneurysm that has worsened slightly since prior. This now measures 3 x 3.5 cm in AP and lateral dimensions. 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 There is a patent aorta-bifemoral bypass graft. There is some surrounding aneurysmal type dilation involving the graft mainly the left side there is grossly stable from prior. There is also a left distal femoral graft anteriorly which is occluded stable from prior. There is a huge oval relatively simple fluid collection at the right femoral canal, approximately stable from prior. This measures approximately 20 x 8 cm. There is mild constipation with rectal stool impaction. No bowel obstruction or acute appearing inflammation. Uterus is absent. Urinary bladder is normal. There are moderate degenerative changes of the spine. No acute or suspicious bony lesion. IMPRESSION: Numerous issues. No significant change from prior. This exam was performed using automated exposure control, adjustment of mA or kV according to patient size, and/or use of iterative reconstruction technique Electronically signed by Ravi Cantu 10/07/2018 2:10 PM
--- NOTE | 2018-10-07 14:41 | PROVIDER DOCUMENTATION ---
This chart was entered by Temitope Doe Scribe, acting as scribe for Lyn Jc CRNP. HPI-General Adult - General Chief Complaint: Abnormal Lab[s] Stated Complaint: abn labs Time Seen by Provider: 10/07/18 11:35 Source: patient Allergies/Adverse Reactions: Patient Allergies Allergy/AdvReac Type Severity Reaction Status Date / Time tuberculin,PPD,multi-puncture Allergy Unknown Verified 06/22/16 15:42 Home Medications: Home Medication List Medication Instructions Recorded Confirmed Last Taken Type Clonidine HCl 0.1 mg PO Q8H PRN PRN 10/11/15 10/10/16 10/10/16 09:00 History 0.1 MG Gabapentin [Neurontin] 300 mg PO HS 10/11/15 10/10/16 10/09/16 09:00 History 300 MG Glipizide [Glucotrol] 5 mg PO DAILY 10/11/15 10/10/16 10/10/16 09:00 History 5 MG Lisinopril 10 mg PO DAILY 10/11/15 10/10/16 10/10/16 09:00 History 10 MG Aspirin 81 mg PO DAILY #30 10/18/15 10/10/16 10/10/16 09:00 Rx 81 MG Diltiazem C.d. [Cardizem Cd] 240 mg PO DAILY #30 capsule 10/18/15 10/10/16 10/10/16 09:00 Rx 240 MG Linaclotide [Linzess] 145 mcg PO DAILY@0700 #30 capsule 10/18/15 10/10/16 10/10/16 09:00 Rx 145 MCG Famotidine [Pepcid] 20 mg PO BID 04/14/16 10/10/16 10/10/16 09:00 History 20 MG Melatonin 3 mg PO HS 04/14/16 10/10/16 10/09/16 09:00 History 3 MG Potassium Chloride [Klor-Con M20] 20 meq PO DAILY 04/14/16 10/10/16 10/10/16 09:00 History 20 MEQ Trazodone E.r. [Oleptro ER] 75 mg PO QHS 04/14/16 10/10/16 10/09/16 09:00 History 75 MG Acetaminophen Liquid [Tylenol 650 mg PO Q6H PRN PRN #0 udc 04/17/16 10/10/16 10/10/16 09:00 Rx Liquid] 650 MG Carvedilol [Coreg] 25 mg PO BID #0 tablet 04/17/16 10/10/16 10/10/16 09:00 Rx 25 MG Duloxetine [Cymbalta] 60 mg PO BID 06/22/16 10/10/16 10/10/16 09:00 History 60 MG Pioglitazone [Actos] 15 mg PO HS 06/22/16 10/10/16 10/09/16 09:00 History 15 MG - History of Present Illness -Gen Adult Nature of Presenting Problems: Patient is an 83 year old black female who presents to the ED via EMS due to low H&H. Reports RLQ abdominal pain but denies any other symptoms. No vomiting, fever, melena, dizziness, chest pain, or SOB. Pt is non-toxic in appearance. Location of Pain/Injury: reports: abdomen (RLQ) Pain Radiation: reports: no radiation Quality of Pain: reports: aching Severity: reports: mild Onset/Duration: reports: 3 days ago Timing: reports: still present Context/Activities at Onset: reports: light activity Associated Symptoms: reports: denies symptoms Similar Symptoms Previously?: Yes Recently seen or treated by another doctor?: No Review of Systems - Adult - REVIEW OF SYSTEMS - ADULT Constitutional: reports: no symptoms reported. denies: chills, fever, fatique Eyes: reports: no symptoms reported Ears, Nose, Mouth & Throat: reports: no symptoms reported Cardiovascular: reports: no symptoms reported Respiratory: reports: no symptoms reported Gastrointestinal: reports: see HPI, abdominal pain (RLQ). denies: hematemesis, diarrhea, nausea, vomiting Genitourinary: reports: no symptoms reported Musculoskeletal: reports: no symptoms reported Integumentary: reports: no symptoms reported Neurological: reports: no symptoms reported Psychiatric: reports: no symptoms reported Endocrine: reports: no symptoms reported Hematologic/Lymphatic: reports: no symptoms reported Allergic/Immunologic: reports: no symptoms reported All Other Systems: Reviewed and Negative Past History - Adult - PAST MEDICAL HISTORY-ADULT Review of Records: reports: Old Records Reviewed, Nursing Assessment Review, Medications Reviewed, Social history reviewed & non-contributory. Major Childhood Illnesses: reports: denies history Cardiovascular: reports: A-Fib, HTN, other (aaa) Respiratory: reports: denies history Gastrointestinal: reports: GERD Obstetrical/Gynecological: reports: denies history Genitourinary: reports: kidney disease Musculoskeletal: reports: denies history Neurological: reports: CVA, stroke deficits (left sided) Psychiatric: reports: depression Endocrine/Immune: reports: Diabetes Diabetes Type: Type 2 Other Conditions: reports: denies history - PRIOR SURGERIES/PROCEDURES Surgical/Procedure History: reports: hysterectomy, orthopedic (extremity) (left aka), other (breast biopsy, AAA) - IMMUNIZATION STATUS Childhood Immunizations: See Nurse Assessment Flu Vaccine: See Nurse Assessment - FAMILY HISTORY Family History: reviewed, not pertinent - SOCIAL HISTORY Smoking: cigarettes (former) Substance Use: denies Living Situation: care facility (SNF) Physical Exam-General - PHYSICAL EXAM-ADULT Initial Vital Signs Reviewed: Yes - CONSTITUTIONAL General Appearance: alert, no apparent distress. negative: lethargic, slow to respond - EYES Eyes: PERRL/EOMI, pink conjunctivae - HEAD, EARS, NOSE, MOUTH & THROAT HENMT: normocephalic/atraumatic, moist mucous membranes - NECK Neck: full range of motion, supple, normal inspection - RESPIRATORY Respiratory: chest non-tender, lungs clear, normal breath sounds, no respiratory distress, no accessory muscle use. negative: rhonchi, stridor, wheezing - CARDIOVASCULAR Cardiovascular: normal peripheral pulses, regular rate, rhythm, no edema, no gallop, no murmur. negative: tachycardia, systolic murmur - GASTROINTESTINAL (ABDOMEN) Abdominal Exam: normal bowel sounds, soft, no organomegaly, tenderness (RLQ- mild), mass (RLQ), other (1 cm linear open wound to left pelvic region.). negative: guarding, rebound - GENITOURINARY Rectal Exam: normal exam, other (no blood present). 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 left BKA.). negative: erythema, swelling Peripheral Pulses: radial (R): 3+, radial (L): 3+ - SKIN Integumentary: normal color, normal turgor, warm/dry, other (1 cm linear open wound to left pelvic region.). negative: cyanosis, diaphoresis, jaundice, mottled, pallor, rash - NEUROLOGIC Neurologic: grossly normal, no motor/sensory deficits. negative: aphasia, facial droop - PSYCHIATRIC Psych/Mental Status: normal mood/affect, normal thought content, normal thought process, oriented x 3. negative: anxious Progress - PLAN OF CARE/RESULTS Progress/Plan/Lab Results: 1319- On-call GI paged. 1424- Admitting HPS paged. Pt in agreement with admission plan. Result Diagrams: 10/07/18 12:35 10/07/18 12:35 - EKG 1 Time of EKG reading by physician:: 12:13 EKG Read and Signed by:: Travis Hernandez EKG Interpretation (*Must complete 3 of following elements*): Normal Rate: 70 Rhythm: normal sinus rhythm [place]: normal QRS: normal MI Interval: normal ST Wave: normal Comments: normal ECG - CT/MRI 1 CT Study: Abdomen, Pelvis (IMPRESSION: Numerous issues. No significant change from prior. This exam was performed using automated exposure control, adjustment of mA or kV according to patient size, and/or use of iterative reconstruction technique Electronically signed by Ravi Cantu 10/07/2018 2:10 PM) - CONSULTS/PCP/HOSPITALIST Notification #1 *Consult/PCP/Hospitalist*: Dr. Gonzalez Time Discussed: 13:30 Reason/Comments: anemia, poss. GI bleed, hemoccult positive Consult Disposition: other (Will admit to [facility], consulting physician now aware of pt, md aware CT is pending.) #2 Consult: JOHN Bonilla HOSPICE VOLUNTEER COORDINATOR Time Discussed: 14:34 Reason/Comments: anemia, poss GI bleed Consult Disposition: Will see in ED, Admit Departure - Departure Date of Disposition Decision: 10/07/18 Time of Disposition Decision: 14:34 DIAGNOSIS: Anemia Qualifiers: Anemia type: unspecified type Qualified Code(s): D64.9 - Anemia, unspecified GI bleed Qualifiers: GI bleed type/associated pathology: unspecified gastrointestinal hemorrhage type Qualified Code(s): K92.2 - Gastrointestinal hemorrhage, unspecified Disposition: ADMITTED INPATIENT 09 Certified Medical Emergency: Emergent Condition: Stable Referrals and Follow-Ups: Alex Pérez III, MD [Primary Care Provider] - - Critical Care Note This patient required my direct & personal management of CC.: Yes Total Time (mins): 30 Critical Care Statement: This patient required my direct personal management to treat or rule out processes, the absence of which, could potentiallly result in sudden, clinically significant life or limb threatening deterioration. Attestation - Physician/ HERSON Attestation Patient care was provided by Advanced Practice Provider:: Yes Advanced Practice Provider:: Lyn Jc Advanced Practice Provider documentation review:: The Mid-level provider documentation, treatment plan and medical decision making was reviewed by the physician who agrees with all treatment and medical decision making by the MLP. The physician spent face to face time with patient:: No Advanced Practice Provider documentation review:: Supervising physician onsite and consulted in the evaluation and care of this patient. The physician did not have a face to face encounter with the patient. This chart was documented by the indicated scribe, (Temitope Doe Scribe) and accurately reflects the services I performed and decisions made by me, Roel Jc CRNP, as attested by the provider's signature.
[2018-10-07 14:48] LABS: URINE SOURCE CATH
[2018-10-07 14:53] LABS: COLOR YELLOW; GLUCOSE URINE NEGATIVE (NEGATIVE); TURBIDITY URINE HAZY (CLEAR); UR EPITHELIAL CELLS >10 /HPF (<10); URINE BACTERIA 4+ /HPF; URINE RBC <10 /HPF (<10); URINE WBC TNTC /HPF (<10)
[2018-10-07 14:54] LABS: BILIRUBIN URINE NEGATIVE (NEGATIVE); BLOOD URINE NEGATIVE (NEGATIVE); KETONE URINE NEGATIVE (NEGATIVE); LEUKOCYTES URINE LARGE (NEGATIVE); NITRITE URINE POSITIVE (NEGATIVE); PH URINE 5.5; PROTEIN URINE TRACE mg/dL (NEGATIVE); SP GRAVITY URINE 1.023; UROBILINOGEN URINE NORMAL (NORMAL)
[2018-10-07] MEDS: NS 500 ML IV ONE ×2 (16:08→22:00)
[2018-10-07] MEDS ORDERED: LEVAQUIN 500 MG/D5W 500 MG/100 ML IVPB IV SCH (16:14)
[2018-10-07] MEDS ORDERED: HUMALOG SUBQ SCH (16:14)
[2018-10-07] MEDS ORDERED: ZOFRAN IV PRN (16:14)
[2018-10-07 17:10] LABS: IRON SATURATION 3 %; TIBC 397 ug/dL; TOTAL IRON 12 ug/dL (49-151); UNBOUND IRON 385 ug/dL (112-346)
[2018-10-07 17:50] LABS: FERRITIN 20 ng/mL (13-150)
[2018-10-07 18:59] LABS: URINE SOURCE CATH
[2018-10-07 19:14] LABS: BILIRUBIN URINE NEGATIVE (NEGATIVE); BLOOD URINE MODERATE (NEGATIVE); COLOR YELLOW; GLUCOSE URINE NEGATIVE (NEGATIVE); KETONE URINE NEGATIVE (NEGATIVE); LEUKOCYTES URINE MODERATE (NEGATIVE); NITRITE URINE POSITIVE (NEGATIVE); PH URINE 5.5; PROTEIN URINE NEGATIVE (NEGATIVE); SP GRAVITY URINE 1.049; TURBIDITY URINE CLEAR (CLEAR); UR EPITHELIAL CELLS <10 /HPF (<10); URINE BACTERIA 4+ /HPF; URINE RBC <10 /HPF (<10); URINE WBC 20-40 /HPF (<10); UROBILINOGEN URINE NORMAL (NORMAL)
--- NOTE | 2018-10-07 20:28 | HISTORY AND PHYSICAL ---
CHIEF COMPLAINT: Abnormal labs. HISTORY OF PRESENT ILLNESS: Ms. Robins is an 83-year-old female who carries a past medical history of CVA with left-sided deficits and left arm contracture, left lower extremity amputation, diabetes mellitus, atrial fibrillation, hypertension, AAA, who was brought to the ED from rehab. She reports she has been weak and has been having some right lower quadrant pain, but she denied any bright red or dark tarry stools. She has had a at times productive cough that is brown in color. No fever, no chills. No chest pain, shortness of breath. No constipation, no diarrhea. No nausea or vomiting. No dysuria. Workup in the ED confirmed upper GI bleed with an hemoglobin and hematocrit of 4.6 and 17.6, and a positive Hemoccult stool as well as 4+ bacteria and positive nitrites in her urine. We will admit her to the ICU. She is being transfused with [address] Gonzalez with Gastroenterology will assess the patient and decide whether she needs a colonoscopy or EGD. REVIEW OF SYSTEMS: Twelve-point review of systems completely negative except for those mentioned in HPI. PAST MEDICAL HISTORY: 1. Hypertension. 2. Atrial fibrillation. 3. AAA, status post repair. 4. CVA, with left-sided weakness and left arm contracture. 5. Diabetes mellitus type 2. 6. Cataracts. 7. Hysterectomy. 8. Fem-pop. 9. Right groin seroma status post aspiration. 10. AAA repair with iliofemoral bypass. SOCIAL HISTORY: She is a resident at [facility]. She does have her brother at the bedside who is her power of sports attorney. No alcohol, tobacco or illicit drug use. FAMILY HISTORY: Reviewed and noncontributory. ALLERGIES: Tuberculin, PPD. HOME MEDICATIONS: Have not been verified. PHYSICAL EXAMINATION: VITAL SIGNS: Temperature 97.6, heart rate 74, respirations 17, blood pressure 165/78. O2 is 100% on room air. GENERAL: Ms. Robins is a pleasant 83-year-old female who is lying on the stretcher in no acute distress. HEENT: Atraumatic, normocephalic. PERRL. Poor dentition. NECK: Supple. Trachea midline. CARDIOVASCULAR: S1, S2 appreciated. No murmurs, gallops or rubs noted. No JVD noted. PULMONARY: Clear to auscultation. Bilateral breath sounds decreased in the bases. No increased work of breathing noted. NEUROLOGIC: Patient is awake, alert, oriented. Follows commands. Moves her right upper and lower extremities. DIAGNOSTIC DATA: EKG shows normal sinus rhythm. Abdomen and pelvis CT shows numerous issues, but none that are significant change from prior. LABORATORY DATA: White count is 4, hemoglobin and hematocrit is 4 and 17, platelet count is 283,000. INR is 1. Sodium 139, potassium 4.1, BUN 12, creatinine 0.9, blood glucose is 131. Troponin was less than 0.010. Urine was 4+ bacteria. Leukocyte positive and positive nitrates. ASSESSMENT AND PLAN: 1. GI bleed. We will move her to the ICU overnight and monitor her vital signs closely. Transfuse 2 units of blood. Recheck her hemoglobin and hematocrit at midnight. Dr. Gonzalez with Gastroenterology is going to assess her abdomen and pelvis CT and decide on EGD versus colonoscopy. Will continue her on Protonix drip. Keep her n.p.o. for now. Check anemia profile. 2. Urinary tract infection. We will initiate IV Levaquin, await the urine culture. 3. Diabetes mellitus type 2. We will do pattern blood sugars with sliding scale insulin. 4. CVA with a left-sided deficit, aware. 5. Hypertension. Home medications on hold for now, need to be verified. 6. Left [id number] amputation. Aware. 7. Further recommendation to follow physician evaluation, laboratory and diagnostic data. Dictated by TATI Whiting for Chantelle Tsai MD cc: Chantelle Tsai MD I performed a face to face encounter on the patient. I reviewed all labs and imaging on the patient. I agree with the H&P as dictated. [facility]
[2018-10-07] MEDS: MAXIPIME 1 GM in NS 50 ML IV SCH (20:41)
[2018-10-07] MEDS: PROTONIX 80 MG in NS 80 ML IV SCH (21:46)
[2018-10-07] MEDS: HUMULIN R SUBQ SCH (21:51)
[2018-10-07] MEDS ORDERED: NS 500 ML ONE (22:02)
[2018-10-08 04:12] LABS: BASO# 0.06 X1000 (0.0-0.2); BASO% 0.8 % (0.0-0.8); EOS# 0.15 X1000 (0.0-0.7); EOS% 2.1 % (0.0-10.0); HEMATOCRIT 26.4 % (37.0-47.0); HEMOGLOBIN 7.9 g/dL (12.0-16.0); LYMPH# 1.56 X1000 (1.2-3.4); MCH 22.7 PG (27-31); MCHC 29.9 g/dL (33-37); MCV 75.9 FL (81-99); MONO# 0.69 X1000 (0.11-0.59); MONO% 9.7 % (1.7-9.3); NEUT# 4.64 X1000 (1.4-6.5); NEUT% 65.4 % (42.2-75.2); PLT 321 X1000 (130-400); RBC 3.48 XMIL (4.2-5.4); RDW 19.3 % (11.5-14.5)
[2018-10-08 05:01] LABS: AGAP 11; ALB/GLOB RATIO 0.9; ALBUMIN 3.3 g/dL (3.5-5.0); ALKALINE PHOSPHATASE 90 U/L (32-104); BUN 8 mg/dL (8-22); CALCIUM 7.9 mg/dL (8.8-10.2); CHLORIDE 110 mmol/L (98-107); COSMO 277; CREATININE 0.9 mg/dL (0.5-0.9); ESTIMATED GFR > 60; GLUCOSE 89 mg/dL (70-104); GOT 8 U/L (10-30); GPT < 5 U/L (10-36); MAGNESIUM 1.8 mg/dL (1.5-2.7); POTASSIUM 3.6 mmol/L (3.5-5.1); SODIUM 140 mmol/L (136-145); TCO2 19 mmol/L (25-35); TOTAL PROTEIN 6.9 g/dL (6.3-8.3)
[2018-10-08] MEDS: PROTONIX 80 MG in NS 80 ML IV SCH ×2 (05:30→15:28)
[2018-10-08] MEDS: HUMULIN R SUBQ SCH ×4 (06:18→20:16)
--- NOTE | 2018-10-08 07:20 | Diag Imaging Result Doc PS360 ---
EXAM: CHEST-PORTABLE 10/08/2018 HISTORY: fu TECHNIQUE: AP portable at 0528 COMMENT: There are calcifications in the left hilum and the subcarina. There is cardiomegaly. Compared to 06/23/2016 the appearance of the chest has not changed appreciably. IMPRESSION: Cardiomegaly. Electronically signed by Curt Murillo 10/08/2018 7:18 AM
[2018-10-08] MEDS: MAXIPIME 1 GM in NS 50 ML IV SCH ×2 (08:12→21:34)
[2018-10-08] MEDS: MORPHINE IV PRN ×2 (15:24→21:39)
[2018-10-08] MEDS: PROTONIX IV SCH (15:32)
--- NOTE | 2018-10-08 18:22 | PROGRESS NOTE ---
DATE: 10/08/2018 SUBJECTIVE: The patient is resting comfortably in bed. She is pleasantly confused. No acute events noted overnight. OBJECTIVE: Vital Signs: Temperature 97.6 degrees, blood pressure 172/71, heart rate 75, respirations 17, O2 saturations 100% on 2 L nasal cannula. General: This is a chronically ill- appearing elderly female lying in bed in no acute distress. Heart: S1, S2 normal. Regular rate and rhythm. Lungs: Clear to auscultation bilaterally. No wheezing. No rales. No rhonchi. Abdomen: Positive bowel sounds. Soft, nontender, nondistended. Extremities: No edema, no cyanosis. Left AKA. Neuro: The patient is alert but demented. LABS: White blood cell count 7, hemoglobin 7.9, hematocrit 26, platelets 321,000. Sodium 140, potassium 3.6, chloride 110, CO2 19, BUN 8, creatinine 0.9, magnesium 1.8, calcium 7.9, AST 8, alkaline phosphatase 90. ASSESSMENT AND PLAN: 1. Suspected gastrointestinal bleed. We will monitor the hemoglobin and hematocrit, continue on the Protonix drip. Further recommendations to follow from GI. 2. Severe iron deficiency anemia. We will continue to monitor the hemoglobin and hematocrit closely. The patient will likely need iron supplementation. 3. Urinary tract infection. Continue with antibiotic therapy. The urine culture is growing gram- negative rods. 4. Diabetes mellitus type 2. Continue on sliding scale insulin. 5. Hypertension. Stable. 6. Deep vein thrombosis prophylaxis. Continue with SCDs. cc: Chantelle Tsai MD MTDD
--- NOTE | 2018-10-08 18:30 | GASTROENTEROLOGY CONSULTATION ---
DATE: 10/07/2018 REQUESTING PHYSICIAN: Dr. Tsai. PRIMARY CARE DOCTOR: Dr. Alex Pérez. REASON FOR CONSULTATION: Severe anemia requiring blood transfusion. Question of GI source. HISTORY OF PRESENT ILLNESS: Ms. Robins is an 83-year-old female who was admitted on 10/07/2018 for abnormal labs. The patient was noted to have severe anemia. She was sent to the ER. In the ER, her hemoglobin was 4.6 grams. She was given 2 units of blood transfusion. Her hemoglobin improved. There was no evidence of any active bleeding. During the hospitalization, no vomiting blood or passing blood. Gastroenterology was consulted for further management. 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 PAST SURGICAL HISTORY: Abdominal aortic aneurysm repair with iliofemoral bypass, cataract surgery, hysterectomy, femoral popliteal bypass, right groin seroma status post aspiration. SOCIAL HISTORY: She is a resident of [facility]. 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 No history of alcohol, tobacco, illicit drug abuse. FAMILY HISTORY: Noncontributory. ALLERGIES: Tuberculin, PPD and multi-puncture. MEDICATIONS IN THE HOSPITAL: Include insulin sliding scale with Humulin R, iron C b.i.d., cefepime, morphine 2 mg IV every 4 hours, multivitamin once daily, Zofran 4 mg IV every 4 hours, Protonix b.i.d. HOSPITAL DIET: She is on a full liquid diet. REVIEW OF SYSTEMS: Could not be obtained. The patient is noninteractive. All the history was obtained from the records and nursing staff. PHYSICAL EXAMINATION: Vital Signs: Temperature 97.6, pulse rate 77, respiratory rate 13, blood pressure 180/90, saturating 100% on 2 L nasal cannula. Body weight of 170 pounds. BMI 28.2 kg/m2. General: The patient is lying in bed in no acute distress. HEENT: Pale conjunctivae. No icterus. Pupils equal. Neck: Supple. Abdomen: Protuberant. There is a midline scar from prior surgeries. Extremities: She has contracture in the left upper extremity. She has a left lower extremity above-knee amputation. Neuro: She is awake but non nonverbal, noninteractive. Did not answer my questions. LABS: Hemoglobin and hematocrit is 7.9 and 26.4, white count of 7.1, platelet count of 321. Sodium 140, potassium 3.6, chloride 110, bicarb of 19, anion gap of 11, BUN of 8, creatinine 0.9, glucose of 89, calcium of 7.9. Magnesium 1.8. Total bilirubin is 0.5, AST 8, ALT less than 5, alkaline phosphatase 90. Total protein 6.2, albumin of 3.3. Iron saturation of 3%, iron level of 12, ferritin of 20, suggesting chronic iron deficiency. Urinalysis showing positive blood, positive nitrite, moderate leukocytes. Urine culture report is currently pending. It is showing gram-negative rods. The left hip gram stain is showing rare white cells, but culture is negative. Stool for occult blood was positive. Abdominal/pelvic CT scan done showed: 1. Linear atelectasis in lung bases. 2. Cardiomegaly. 3. Stable cholecystectomy clips. 4. Several nonobstructing stones in the right kidney and a couple on the left side as well. 5. Fusiform infrarenal abdominal aortic aneurysm,worsened slightly since prior, measuring 3 x 3.5 cm AP dimension and lateral dimension. 6. 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 T 7. There is a patent aortobifemoral bypass graft. There is some surrounding aneurysmal type dilation involving the graft mainly in the left side. There is grossly stable from prior. 8. There is also a left distal femoral graft anteriorly which is occluded, stable from prior. 9. There is a huge oval, relatively simple fluid collection at the right femoral canal, approximately stable from prior. This measures 20 x 8 cm. 10. There is mild constipation. There is rectal stool impaction. No bowel obstruction or acute inflammation. 11. There are moderate degenerative changes of the spine. 12. Uterus is absent. Urinary bladder is normal. 13. No acute or suspicious bony lesions. IMPRESSION AND PLAN: 1. Positive Hemoccult. 2. Severe anemia. 3. Urinary tract infection. 4. Type 2 diabetes. 5. Cerebrovascular accident with left-sided deficit and contraction. 6. Hypertension. 7. Left above-knee amputation. 8. Constipation and possible rectal fecal impaction. 9. Abdominal aortic aneurysm, status post repair. 10. Atrial fibrillation. RECOMMENDATIONS: 1. We will continue Protonix drip. Will start on Iron C b.i.d. for severe iron-deficiency anemia. She will continue on IV cefepime for UTI. She will continue sliding-scale insulin for diabetes. She has rectal fecal impaction. We will start her on MiraLAX twice daily and Dulcolax twice daily for now. We will also give her 2 soapsuds enemas to help with the fecal impaction. 2. We will continue a full liquid diet. We will transfuse as needed. 3. The patient is DO NOT RESUSCITATE level 1. 4. If the patient shows signs of active GI bleeding, then we may pursue an endoscopy, but at this time will continue with conservative management. The above plan was discussed with the patient's nurse at bedside, and all questions were answered. Please call us with any further questions. cc: MD Alex Cerda MD
[2018-10-08] MEDS: MIRALAX PO SCH (21:34)
[2018-10-08] MEDS: ICAR-C PO SCH (21:34)
[2018-10-08] MEDS: DULCOLAX PR SCH (21:34)
[2018-10-09] MEDS: PROTONIX IV SCH ×2 (04:33→15:09)
[2018-10-09] MEDS: HUMULIN R SUBQ SCH ×4 (06:10→20:27)
[2018-10-09 06:43] LABS: HEMATOCRIT 28.8 % (37.0-47.0); HEMOGLOBIN 8.6 g/dL (12.0-16.0); MCH 22.8 PG (27-31); MCHC 29.9 g/dL (33-37); MCV 76.2 FL (81-99); MPV 10.2 FL (7.4-10.4); RBC 3.78 XMIL (4.2-5.4); RDW 19.9 % (11.5-14.5); WBC 6.49 X1000 (4.8-10.8)
[2018-10-09 07:12] LABS: AGAP 9; BUN 8 mg/dL (8-22); CALCIUM 8.4 mg/dL (8.8-10.2); CHLORIDE 108 mmol/L (98-107); COSMO 279; CREATININE 0.8 mg/dL (0.5-0.9); ESTIMATED GFR > 60; GLUCOSE 82 mg/dL (70-104); POTASSIUM 3.4 mmol/L (3.5-5.1); SODIUM 141 mmol/L (136-145); TCO2 24 mmol/L (25-35)
[2018-10-09] MEDS: MIRALAX PO SCH ×2 (08:47→20:30)
[2018-10-09] MEDS: MAXIPIME 1 GM in NS 50 ML IV SCH (08:47)
[2018-10-09] MEDS: CENTRUM SILVER PO SCH (08:47)
[2018-10-09] MEDS: ICAR-C PO SCH ×2 (08:47→20:29)
[2018-10-09] MEDS: DULCOLAX PR SCH ×2 (08:47→20:27)
[2018-10-09] MEDS: INVANZ 1 GM/NS 1 GM/50 ML IVPB IV SCH (10:22)
[2018-10-09] MEDS ORDERED: KLOR-CON PO ONE (17:05)
--- NOTE | 2018-10-09 17:48 | PROGRESS NOTE ---
DATE: 10/09/2018 SUBJECTIVE: The patient is resting comfortably in bed. No acute events noted overnight. OBJECTIVE: Vital Signs: Temperature 98.6 degrees, blood pressure 147/74, heart rate 86, respirations 22, O2 saturation is 100% on room air. General: This is a chronically ill- appearing, elderly female lying in bed, in no acute distress. Heart: S1, S2 normal. Regular rate and rhythm. Lungs: Clear to auscultation bilaterally. Abdomen: Positive bowel sounds. Soft, nontender, nondistended. Extremities: Left AKA. No edema. No cyanosis. Neurologic: The patient is awake but demented. She is able to move her extremities. LABS: White blood cell count 6.4, hemoglobin 8.6, hematocrit 28, platelets 339,000. Sodium 141, potassium 3.4, chloride 108, CO2 24, BUN 8, creatinine 0.8, glucose 112. ASSESSMENT AND PLAN: 1. Suspected gastrointestinal bleed. The patient received a blood transfusion yesterday. Continue on Protonix. GI is following. 2. Severe iron deficiency anemia. The hemoglobin and hematocrit have improved. We will continue to monitor closely. 3. Urinary tract infection secondary to ESBL Escherichia coli. We will switch the patient to Invanz. 4. Advanced dementia. Aware. 5. Hypokalemia. Will replace the patient's potassium. 6. Deep vein thrombosis prophylaxis. Continue with SCDs. 7. Disposition. The patient is a DNR level 1. cc: Chantelle Tsai MD MTDD
--- NOTE | 2018-10-09 17:51 | GASTROENTEROLOGY PROGRESS NOTE ---
DATE: 10/09/2018 SUBJECTIVE: The patient is resting in bed. She started moving her bowels with the bowel regimen. She had a fecal impaction on admission. No evidence of any overt GI bleeding. Her hematocrit is actually improving according to the nursing staff. The patient has shown no signs of active bleeding. OBJECTIVE: PHYSICAL EXAMINATION: Vital signs: Temperature 97.6 degrees, pulse of 80, respiratory rate 18, blood pressure 152/102 saturating 100% room air. Body weight of 159 pounds. BMI 25.7 kg. General Appearance: Moderately built, moderately nourished lying in bed, in no acute distress. HEENT: Pale conjunctivae. No icterus. Neck: Supple. Abdomen: Midline scar almita noted. Softer abdomen today. Extremities: She has left above knee amputation. Neurologic: She has had a CVA and she is nonverbal. She has contractures of the left upper extremity. LABORATORIES: H H is 8.6 and 28.8, white count of 6.49, platelet count of 339. Sodium 141, potassium 3.4, chloride 108, bicarb 24, BUN of 8, creatinine 0.8, glucose of 112, calcium is 8.4. Urine culture is showing E coli and left hip culture is still pending. More intubation required. Stool occult blood loss positive. IMPRESSION AND PLAN: 1. Suspected gastrointestinal bleed. 2. Severe anemia status post transfusion and now stable. 3. Severe iron-deficiency anemia. 4. Urinary tract infection. 5. Type 2 diabetes. 6. Hypertension. 7. Kidney stones. 8. Cardiomegaly. 9. 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 10. Constipation and rectal fecal impaction. 11. Abdominal aortic aneurysm, status post repair. 12. Atrial fibrillation. RECOMMENDATIONS: 1. We will continue conservative management. She will continue on proton pump inhibitor. She will continue on iron supplementation. We will keep her on IV antibiotics for urinary tract infection. She will continue sliding-scale insulin for diabetes. She has been on a bowel regimen with MiraLAX twice daily and Dulcolax twice daily for constipation. This is improved. She will continue full liquid diet. We will continue to follow hemoglobin and hematocrit and transfuse as needed. 2. The patient has no signs of active bleeding at this point. We will continue conservative management. The patient does show any signs of active bleeding, then we may have to pursue endoscopy. The above plans were discussed with the patient's nurse at bedside. All questions answered. Please call us with any further questions. cc: MD Alex Cerda MD MTDD
[2018-10-09] MEDS: MORPHINE IV PRN ×2 (19:25→23:09)
[2018-10-10] MEDS: MORPHINE IV PRN ×3 (02:10→19:55)
[2018-10-10] MEDS: PROTONIX IV SCH ×2 (03:39→14:30)
[2018-10-10] MEDS: HUMULIN R SUBQ SCH ×3 (06:08→15:39)
[2018-10-10 06:29] LABS: HEMATOCRIT 27.5 % (37.0-47.0); HEMOGLOBIN 8.1 g/dL (12.0-16.0); MCH 23.3 PG (27-31); MCHC 29.5 g/dL (33-37); RBC 3.48 XMIL (4.2-5.4); RDW 20.6 % (11.5-14.5); WBC 7.16 X1000 (4.8-10.8)
[2018-10-10 07:23] LABS: AGAP 13; BUN 7 mg/dL (8-22); CALCIUM 8.5 mg/dL (8.8-10.2); CHLORIDE 108 mmol/L (98-107); COSMO 275; CREATININE 0.9 mg/dL (0.5-0.9); ESTIMATED GFR > 60; GLUCOSE 85 mg/dL (70-104); SODIUM 139 mmol/L (136-145); TCO2 18 mmol/L (25-35)
[2018-10-10] MEDS: ICAR-C PO SCH ×2 (08:31→20:00)
[2018-10-10] MEDS: CENTRUM SILVER PO SCH (08:32)
[2018-10-10] MEDS: MIRALAX PO SCH ×2 (08:32→20:00)
[2018-10-10] MEDS: DULCOLAX PR SCH ×2 (08:32→20:06)
[2018-10-10] MEDS: INVANZ 1 GM/NS 1 GM/50 ML IVPB IV SCH (09:24)
[2018-10-10] MEDS ORDERED: NS 1,000 ML IV SCH (14:30)
--- NOTE | 2018-10-10 15:16 | GASTROENTEROLOGY PROGRESS NOTE ---
DATE: 10/10/2018 SUBJECTIVE: Patient is resting in bed. She was able to answer some questions. She is feeling better. No active bleeding noted. She had brown stool per the records. She denies any nausea or vomiting. She is eating better. No fevers reported. OBJECTIVE: Vitals: Temperature 98.4 degrees, pulse rate of 86, respiratory rate 20, blood pressure 150/96, saturating 100% room air. Weight: Body weight of 159 pounds 6 ounces. BMI 25.7 kg/m2. General: Patient is moderately built, moderately nourished female, lying in bed, in no acute distress. HEENT: Pale conjunctiva. No icterus. Neck: Supple. Abdomen: Midline scar noted. Abdomen is soft. No guarding. Extremities: She has left above-knee amputation. Neurological: She is awake and answers questions. DIAGNOSTIC STUDIES: Hemoglobin is 8.1, hematocrit 27.5, white count 7.16, platelet count of 274,000. Sodium 139, potassium 4.0, chloride of 108, bicarbonate of 18, anion gap 13, BUN of 7, creatinine 0.9, glucose of 85, calcium is 8.5. Stool C difficile toxin is negative. C difficile antigen is negative. Urine catheterized is showing E coli. Left hip culture showing gram-negative rods. Further speciation is pending. The E coli growing in the urine culture resistant to Levaquin. Stool occult blood was positive. IMPRESSION AND PLAN: 1. Suspected gastrointestinal bleed. Currently having brown stools. 2. Positive Hemoccult. 3. Severe anemia, improved after transfusion. 4. Urinary tract infection with extended-spectrum beta-lactamase Escherichia coli. 5. Advanced dementia. 6. History of stroke with residual left-sided deficit. 7. History of left above-knee amputation. 8. Deep vein thrombosis prophylaxis with sequential compression devices. 9. Atrial fibrillation. 10. Abdominal aortic aneurysm status post repair. 11. Constipation and rectal fecal impaction. 12. Negative stool studies for Clostridium difficile toxin and antigen. 13. 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 14. Cardiomegaly. 15. Kidney stones. RECOMMENDATIONS: Continue conservative management. We will continue on PPIs. She will continue on IV antibiotics for UTI. She is on sliding scale insulin for diabetes. She will continue MiraLAX and Dulcolax for constipation. She will be on full liquid diet. We will be able to advance the diet as tolerated if okay with the primary team. No plans for any endoscopic treatment at this moment. We will sign off at this time. Please call us with any further questions or if any change in status. The above plan was discussed with the patient and the nursing staff, and all questions were answered. Please call with any further questions. cc: MD Chantelle Cerda MD John Wagner, MD
[2018-10-10] MEDS: SANTYL OINT TOP SCH (15:40)
--- NOTE | 2018-10-10 16:45 | PROGRESS NOTE ---
DATE: 10/10/2018 SUBJECTIVE: The patient is resting comfortably. She states that she feels okay and has no complaints. However, the patient does have some purulent drainage coming from her left groin. OBJECTIVE: Vital Signs: Temperature 98.8 degrees, blood pressure 166/97, heart rate 93, respirations 14, O2 saturation is 100% on room air. General: This is a chronically ill- appearing, elderly female lying in bed, in no acute distress. Heart: S1, S2 normal. Regular rate and rhythm. Lungs: Equal air entry bilaterally. No wheezing. No rales. No rhonchi. Abdomen: Positive bowel sounds. Soft, nontender, nondistended. Groin: In the left groin the patient has some purulent discharge that is apparent. Extremities: Left AKA. Trace edema in the right leg. LABS: White blood cell count 7.1, hemoglobin 8.1, hematocrit 27, platelets 274,000. Sodium 139, potassium 4, chloride 108, CO2 18, BUN 7, creatinine 0.9, glucose 85, calcium 8.5. ASSESSMENT AND PLAN: 1. Gastrointestinal bleed. We will continue to monitor the hemoglobin and hematocrit closely. Continue on IV Protonix. Further management as per GI. 2. Sacral decubitus ulcer. This was present on admission. Continue with wound care. 3. Severe iron deficiency anemia. The patient received a blood transfusion on admission. We will continue to monitor the hemoglobin and hematocrit closely. The patient is on iron supplementation. 4. Hypertension. We will discontinue the normal saline and start the patient on low-dose Coreg. 5. Dementia. Aware. 6. Urinary tract infection secondary to extended spectrum beta lactamase Escherichia coli. Today is day 2 of Invanz therapy. 7. Constipation. Continue with scheduled laxative therapy. 8. Left groin drainage. An ultrasound has been ordered and also the fluid is growing gram negative rods. Continue on antibiotic therapy. 9. Deep vein thrombosis prophylaxis. Continue with SCDs. cc: MD SEAN Mccall
--- NOTE | 2018-10-10 17:11 | Diag Imaging Result Doc PS360 ---
EXAM: US PELVIC NON-OB (LIMITED) INDICATION: left groin possible abscess TECHNIQUE: COMPARISON: No prior ultrasound of this region is available for comparison. FINDINGS: There is a very large complex lesion that is predominantly cystic at the right groin. This has been seen on multiple prior CTs dating as far back as 2015. There is a significant solid component layering in the cyst. It does exhibit internal Doppler flow within the solid portion of the lesion. Given the solid portion with vascular flow, neoplasm cannot completely be excluded. It is also possible that it represents a large pseudoaneurysm with the solid portion exhibiting layering blood products that arises from the right femoral artery. This should be considered if it is a pulsatile mass. Please correlate clinically. It measures at least 15.4 x 20.6 x 7.0 cm. Surrounding soft tissues are essentially unremarkable. IMPRESSION: Nonspecific very large complex mass that is predominantly cystic but also exhibits a solid component with Doppler flow. Please see above discussion. Electronically signed by Alex Ortega 10/10/2018 5:09 PM
[2018-10-10] MEDS: COREG PO SCH (20:00)
[2018-10-11] MEDS ORDERED: NEXIUM IV SCH (04:00)
[2018-10-11 05:26] LABS: HEMATOCRIT 29.3 % (37.0-47.0); HEMOGLOBIN 8.7 g/dL (12.0-16.0); MCH 23.5 PG (27-31); MCHC 29.7 g/dL (33-37); MCV 79.2 FL (81-99); MPV 10.4 FL (7.4-10.4); RBC 3.7 XMIL (4.2-5.4); RDW 21.2 % (11.5-14.5); WBC 8.86 X1000 (4.8-10.8)
[2018-10-11 05:50] LABS: AGAP 11; BUN 5 mg/dL (8-22); CALCIUM 8.4 mg/dL (8.8-10.2); CHLORIDE 108 mmol/L (98-107); COSMO 280; CREATININE 0.9 mg/dL (0.5-0.9); ESTIMATED GFR > 60; GLUCOSE 93 mg/dL (70-104); POTASSIUM 3.2 mmol/L (3.5-5.1); SODIUM 142 mmol/L (136-145); TCO2 23 mmol/L (25-35)
[2018-10-11] MEDS: HUMULIN R SUBQ SCH ×5 (07:29→21:42)
[2018-10-11] MEDS: CENTRUM SILVER PO SCH (08:24)
[2018-10-11] MEDS: ICAR-C PO SCH ×2 (08:25→21:41)
[2018-10-11] MEDS: COREG PO SCH ×2 (08:25→21:41)
[2018-10-11] MEDS: DULCOLAX PR SCH ×2 (08:25→21:42)
[2018-10-11] MEDS: MIRALAX PO SCH ×2 (08:25→21:41)
[2018-10-11] MEDS: SANTYL OINT TOP SCH (08:25)
[2018-10-11] MEDS: MORPHINE IV PRN ×3 (08:44→21:41)
[2018-10-11] MEDS: INVANZ 1 GM/NS 1 GM/50 ML IVPB IV SCH (09:22)
[2018-10-11] MEDS ORDERED: NS 250 ML ONE (10:44)
[2018-10-11 10:58] LABS: INR 1.09
[2018-10-11] MEDS ORDERED: KLOR-CON PO ONE (12:33)
[2018-10-11] MEDS ORDERED: [UNRECOGNIZED DRUG - OTHER] MT PRN (12:45)
[2018-10-11] MEDS: CLINIMIX E 4.25%-5% SOLUTION 1,000 ML IV SCH (12:57)
[2018-10-11] MEDS: LASIX IV SCH (12:57)
[2018-10-11] MEDS: ORAJEL MAXIMUM ST 20% GEL MT PRN (13:11)
--- NOTE | 2018-10-11 13:11 | PROGRESS NOTE ---
DATE: 10/11/2018 SUBJECTIVE: The patient has no major complaints. She has some complaints of pain in her mouth. She seems to be doing okay. No major complaints there. OBJECTIVE: Blood pressure is 159/78, heart rate 81, respiratory rate 18, temperature 98.9 degrees, 100% on room air. Cardiovascular: Regular rate and rhythm. Pulmonary: Bilateral breath sounds diminished at the bases. GI: Soft, nontender, nondistended. Bowel sounds were positive. White count is 8.8, hemoglobin and hematocrit 8 and 29, platelets 327,000. Coagulations normal. Potassium 3.2. PROBLEM LIST: 1. Gastrointestinal bleed. There are no plans for endoscopy. She is on intravenous Protonix. Gastroenterology has signed off. Since her hemoglobin and hematocrit are stable, I am going to switch her to an oral proton pump inhibitor. It has been stable since the and I do not think there is any more bleeding. 2. Sacral decubitus ulcer. We will continue wound care. 3. Severe iron deficiency anemia. She is on Icar C. Her hemoglobin and hematocrit are stable. 4. Hypertension. We will continue her Coreg and follow. 5. Dementia, is stable. 6. Extended-spectrum B-lactamase Escherichia coli urinary tract infection. She is on day 3 of Invanz for which it is sensitive. 7. Constipation. We will continue laxatives and follow closely. 8. Left groin drainage. She does have an ultrasound which showed a large complex mass that is predominantly cystic. 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 She has seen Dr. Corrigan but consult him again about that and continue to follow. 9. Moderate protein calorie malnutrition. We will continue Clinimix and follow. I have also instituted some Lasix just because her blood pressure still not completely under control and we will continue to follow. cc: Beau Sen MD
[2018-10-11] MEDS: PRILOSEC PO SCH (21:41)
[2018-10-12] MEDS: LASIX IV SCH (01:00)
[2018-10-12] MEDS: CLINIMIX E 4.25%-5% SOLUTION 1,000 ML IV SCH ×2 (04:03→17:54)
[2018-10-12 06:20] LABS: HEMATOCRIT 27.1 % (37.0-47.0); MCH 23.5 PG (27-31); MCHC 29.5 g/dL (33-37); MCV 79.5 FL (81-99); MPV 10.3 FL (7.4-10.4); RBC 3.41 XMIL (4.2-5.4); RDW 21.6 % (11.5-14.5); WBC 8.23 X1000 (4.8-10.8)
[2018-10-12 06:44] LABS: AGAP 6; BUN 12 mg/dL (8-22); CALCIUM 8.3 mg/dL (8.8-10.2); CHLORIDE 105 mmol/L (98-107); COSMO 280; CREATININE 0.9 mg/dL (0.5-0.9); ESTIMATED GFR > 60; GLUCOSE 154 mg/dL (70-104); POTASSIUM 3.7 mmol/L (3.5-5.1); SODIUM 139 mmol/L (136-145); TCO2 28 mmol/L (25-35)
[2018-10-12] MEDS: HUMULIN R SUBQ SCH ×4 (08:30→23:39)
[2018-10-12] MEDS: CENTRUM SILVER PO SCH (09:29)
[2018-10-12] MEDS: INVANZ 1 GM/NS 1 GM/50 ML IVPB IV SCH (09:29)
[2018-10-12] MEDS: ICAR-C PO SCH ×2 (09:30→21:55)
[2018-10-12] MEDS: COREG PO SCH ×2 (09:30→22:49)
[2018-10-12] MEDS: DULCOLAX PR SCH (09:30)
[2018-10-12] MEDS: MIRALAX PO SCH ×2 (09:30→10:42)
[2018-10-12] MEDS: PRILOSEC PO SCH ×2 (09:30→21:50)
[2018-10-12] MEDS: SANTYL OINT TOP SCH (09:31)
--- NOTE | 2018-10-12 10:50 | PROGRESS NOTE ---
DATE: 10/12/2018 SUBJECTIVE: She has no major complaints. She is just kind of chewing on her towel like she has done before. OBJECTIVE: Vital Signs: Blood pressure is 141/87, heart rate 93, respiratory 19, temperature 98.1 degrees, satting 100% on room air. Cardiovascular: Regular rate and rhythm. Pulmonary: Bilateral breath sounds. Clear to auscultation. GI: Soft, nontender, nondistended. Bowel sounds are positive. Extremity Exam: No clubbing or cyanosis. Lymphatic Exam: No peripheral edema. Neurological Exam: Nonfocal. LABORATORY DATA: White count 8, hemoglobin and hematocrit 8 and 27, platelets 321. Basic was normal. PROBLEM LIST: 1. Gastrointestinal bleed. We will continue proton pump inhibitor and follow. Gastroenterology I think have actually signed off. There is no bleeding. 2. Severe iron deficiency anemia. She is on Icar C. Hemoglobin and hematocrit is stable. 3. Sacral decubitus. We will continue wound care. 4. She has a large right groin cyst that has been there for a very long time, and now she has got a left groin cyst. I am not entirely sure; it may be infected. There is extended spectrum beta lactamase growing out of the wound, and the CT to me looks like she has involvement of possibly the underlying graft. I have consulted Dr. Corrigan to review the testing and all that. Repeat cultures on the first have been no growth; so, we will see what Dr. Corrigan says. 5. History of fecal impaction. She has improved. 6. Moderate protein calorie malnutrition. We will continue Clinimix and follow. May get an Infectious Disease opinion on her as well. DISPOSITION: I think she is probably stable to go the floor, but we will continue to follow closely. cc: Beau Sen MD
[2018-10-12 11:40] LABS: AGAP 8; ALB/GLOB RATIO 0.9; ALBUMIN 3.6 g/dL (3.5-5.0); ALKALINE PHOSPHATASE 95 U/L (32-104); BUN 15 mg/dL (8-22); CALCIUM 8.7 mg/dL (8.8-10.2); CHLORIDE 100 mmol/L (98-107); COSMO 282; ESTIMATED GFR > 60; GLUCOSE 225 mg/dL (70-104); GOT 10 U/L (10-30); GPT < 5 U/L (10-36); POTASSIUM 3.5 mmol/L (3.5-5.1); SODIUM 137 mmol/L (136-145); TCO2 29 mmol/L (25-35); TOTAL BILIRUBIN 0.27 mg/dL (0.20-1.00); TOTAL PROTEIN 7.7 g/dL (6.3-8.3)
--- NOTE | 2018-10-12 18:34 | INFECTIOUS DISEASE CONSULT REP ---
DATE: 10/12/2018 CONCLUSION: Dr. Sen asked me to see the patient regarding an extended-spectrum beta-lactamase- producing urinary tract infection and a left groin wound infection. There is some question as to whether the left groin infection communicates with the patient's aortobifemoral graft. At this time, I do not see an obvious connection. There is a large oval fluid collection in the right femoral canal that has been there for a long time and has not changed. Given that the patient is afebrile and does not have a leukocytosis, and the fluid collection is not tender, I doubt that it is infected but it may be better to aspirate it and see if there is any infection. RECOMMENDATIONS: I agree with treating the patient with ertapenem. If there is any possibility that the patient's infection does go down to the graft, then I would treat the patient for 6 weeks with IV ertapenem. Ideally, after the 6 weeks of IV antibiotic I would put the patient on a suitable oral antibiotic in a low dose. About the only one that I see that would be reasonable to treat with would be Septra, but in an elderly patient it might be risky giving the patient even a low dose of Septra. DISCUSSION: The patient is unable to supply any information regarding her health and no family members are present. The information I obtained was found in the computer. The patient initially was admitted because of abnormal lab tests. She was found to have a GI tract bleeding. PAST MEDICAL HISTORY: Hypertension; atrial fibrillation; abdominal aortic aneurysm repair; stroke; diabetes mellitus; cataracts; hysterectomy; femoral-popliteal graft; right groin seroma, status post aspiration; abdominal aortic aneurysm repair with iliofemoral bypass. SOCIAL HISTORY: The patient lives at [facility]. The patient does not smoke cigarettes, drink alcoholic beverages or abuse drugs. ALLERGIES: The patient has allergies to tuberculin as used in the PPD test. MEDICATIONS: Home medications include the following: Coreg, Cartia, Pepcid, Neurontin, Glucotrol, lisinopril, Actos and Desyrel. LABORATORY DATA: Laboratory studies done thus far show CBC with a white count of 8230, hemoglobin 8, platelet count 321,000. Creatinine is 1, GFR is greater than 60. Stool for Clostridium difficile toxin and antigen is negative. There was a culture from the groin which was not specified that was negative. The urine culture grew an extended-spectrum beta- lactamase-producing E. coli, and likewise on the patient's left hip there was a wound that grew the same organism. There was a catheterized urine specimen that grew the same medicine from the other urine culture. DIAGNOSTIC DATA: CT scan of the abdomen and pelvis showed abdominal aortic aneurysm, patent aortobifemoral bypass graft, and a huge oval fluid collection in the right femoral canal. PHYSICAL EXAMINATION: Vital signs: Temperature is 98.3 degrees, pulse 89, respirations 17, blood pressure is 131/75. The patient is 5 feet 6 inches tall, weighs 151 pounds. Generally this is an ill-appearing elderly female. She is in no acute distress. Head, eyes, ears, nose and throat: No drainage noted from the nose or ears, and I did not see any white patches in her mouth. She seemed to have very poor dental hygiene.Neck: No meningismus. Lungs clear to auscultation. Cardiovascular: Heart rate was regular but at times it was a little bit irregular. Abdomen was soft. In the left groin, there was a small wound that had some purulent drainage. I tried to probe it and it was all superficial. In the right lower quadrant, there seemed to be a large fluid collection. 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 Neurologic: She did move her right arm and her right leg to request. She did not answer any questions, but she did shake her head yes or no to questions that I asked her. Bones, joints and muscles: The patient has a left [id number] amputation. Extremities: The patient has a PICC in the right arm. The site is not erythematous or swollen. Thank you for the consult. cc: Sunny Whaley MD
--- NOTE | 2018-10-12 19:15 | GENERAL SURGERY PROGRESS NOTE ---
DATE: 10/12/2018 SUBJECTIVE: I will review Ms. Robins's old chart. I did aspirate 1000 mL of fluid from the right lower quadrant cystic mass. It was cloudy and yellow. We sent it for culture. PLAN: I will leave further recommendations pending review of her old chart. cc: Julián Corrigan MD
[2018-10-12] MEDS: ORAJEL MAXIMUM ST 20% GEL MT PRN (22:52)
[2018-10-13] MEDS: CLINIMIX E 4.25%-5% SOLUTION 1,000 ML IV SCH (05:42)
[2018-10-13 06:22] LABS: HEMATOCRIT 27.6 % (37.0-47.0); HEMOGLOBIN 8.2 g/dL (12.0-16.0); MCH 23.6 PG (27-31); MCHC 29.7 g/dL (33-37); MCV 79.3 FL (81-99); MPV 10.2 FL (7.4-10.4); RBC 3.48 XMIL (4.2-5.4); RDW 21.9 % (11.5-14.5); WBC 7.94 X1000 (4.8-10.8)
[2018-10-13 06:36] LABS: MAGNESIUM 1.8 mg/dL (1.5-2.7); PHOSPHORUS 2.8 mg/dL (2.7-4.5)
[2018-10-13] MEDS: HUMULIN R SUBQ SCH ×4 (07:22→22:34)
[2018-10-13] MEDS: ICAR-C PO SCH ×2 (09:05→22:30)
[2018-10-13] MEDS: MIRALAX PO SCH (09:05)
[2018-10-13] MEDS: COREG PO SCH ×2 (09:06→22:30)
[2018-10-13] MEDS: SANTYL OINT TOP SCH (09:06)
[2018-10-13] MEDS: CENTRUM SILVER PO SCH (09:06)
[2018-10-13] MEDS: PRILOSEC PO SCH ×2 (09:06→22:30)
--- NOTE | 2018-10-13 09:48 | INFECTIOUS DISEASE PROGRESS NO ---
DATE: 10/13/2018 PRESENT ILLNESS: The patient has an extended spectrum beta lactamase producing E. coli urinary tract infection and a left groin infection as well. The patient has in the right lower quadrant a cystic mass which yesterday was aspirated by Dr. Corrigan. He obtained 1000 mL of cloudy yellow fluid which has been sent for culture. The patient's urine and left groin wound are both growing an extended spectrum beta lactamase producing E. coli. MEDICATIONS: The patient is on ertapenem. This is day 4 of treatment with it. PHYSICAL EXAMINATION: VITAL SIGNS: Temperature is 97.4 degrees, pulse 95, respirations 27, blood pressure 149/68. GENERAL: This is an ill-appearing elderly female. She is in no acute distress. HEAD, EYES, EARS, NOSE AND THROAT: She did not have any drainage from her nose or ears. I did not notice any white coating of her tongue. She did have very poor dental hygiene. NECK: She did not seem to have any pain in her neck when she moved her head or neck. No meningismus. LUNGS: Clear to auscultation. CARDIOVASCULAR: Heart rate was regular but sometimes it appeared irregular. ABDOMEN: The patient's left groin wound has very minimal drainage and the large fluid mass in the right lower quadrant has been aspirated out by Dr. Corrigan. EXTREMITIES: The patient's left arm has contractures.The patient did move her right arm and right leg to request. She did at times answer questions by shaking her head yes and no. In the patient's right arm, there is a PICC. The site is not purulent or tender. LAB AND X-RAY: CBC shows a white count of 7,940, hemoglobin 8.2, platelet count 321,000. The liver function studies were normal. Both the patient's left groin wound culture and urine are growing an extended spectrum betalactamase producing E. coli. The fluid that Dr. Corrigan joey off has been sent for studies that are not yet back. ASSESSMENT AND PLAN: The patient has an E. coli left groin wound and urinary tract infection. The patient's fluid that was aspirated is still being analyzed and the culture report is not yet back. The plan would be to continue with the ertapenem. If there is any possibility that the infection is communicating with the aortic graft, then I would plan on treating the patient with ertapenem IV for a total of 6 weeks and then possibly follow that with low dose Septra orally although the patient is elderly and she may not be able to tolerate Septra. COMORBIDITIES: She has had an abdominal aortic aneurysm repair. She has had a stroke. She is a diabetic. The patient has an aortobifemoral graft in place. cc: Sunny Whaley MD MTDD
[2018-10-13] MEDS: INVANZ 1 GM/NS 1 GM/50 ML IVPB IV SCH (09:57)
--- NOTE | 2018-10-13 14:28 | Diag Imaging Result Doc PS360 ---
EXAM: US NON VASC EXTREMITY LIMITED 10/13/2018 HISTORY: evaluate for fluid collection in left groin/graft TECHNIQUE: Ultrasound of the left inguinal region. COMMENT: The current study is correlated with the CT dated 10/07/2018. There is an aortoiliac graft as well as a femoral popliteal graft on the left. It would appear that the femoral popliteal graft is occluded. No color Doppler flow is demonstrated on the study and no contrast opacification was present on the CT at this level. There is color Doppler flow in the distal portion of the iliac graft to the anastomosis with the femoral artery. There is a fluid collection seen subadjacent to the anastomosis which does not demonstrate any color Doppler flow. This appeared to enhance with contrast however on the CT examination and may represent a pseudoaneurysm with very sluggish flow. There is no apparent shadowing to suggest gas contents. Some fluid is seen around the graft. IMPRESSION: While there is no evidence of a large abscess, the possibility of infection of the graft cannot be excluded. 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 Electronically signed by Curt Murillo 10/13/2018 2:25 PM
[2018-10-13] MEDS ORDERED: CLINIMIX E 4.25%-5% SOLUTION 1,000 ML IV SCH (16:02)
--- NOTE | 2018-10-13 16:57 | PROGRESS NOTE ---
DATE: 10/13/2018 SUBJECTIVE: The patient has no major complaints. OBJECTIVE: Vital Signs: Blood pressure is 121/52, heart rate 84, respiratory rate 16, temperature 97.6 degrees, and 100% on room air. The patient has been afebrile. Cardiovascular: Regular rate and rhythm. Pulmonary: Bilateral breath sounds clear to auscultation. GI: Soft, nontender, nondistended. Bowel sounds are positive. Extremity: No clubbing or cyanosis. On exam she also has a left upper extremity issue there. Lymphatics: No peripheral edema. LABORATORY DATA: White count 7, hemoglobin and hematocrit 8 and 27, platelets 321,000. I do not have any electrolytes today. PROBLEM LIST: 1. Extended-spectrum beta-lactamase urinary tract infection and wound infection. We will continue Invanz. Appreciate Dr. Whaley's input. We will get an ultrasound just to evaluate if the hardware is infected and see what Dr. Corrigan says. 2. Right thigh cyst. Fluid was aspirated per Dr. Corrigan yesterday. Appreciate his intervention. The fluid has been cultured. Hopefully, we can get some data on that. That is a longstanding cyst. 3. Severe iron-deficiency anemia. She is on Icar-C. 4. Sacral decubitus ulcer. We will continue wound care. 5. Fecal impaction and history of constipation. We will continue bowel regimen. 6. Moderate protein-calorie malnutrition. She is still not eating a whole bunch. I am going to tone down the Clinimix just because I do not want to replace her desire to eat, and we will initiate Megace and follow closely. DISPOSITION: I think we probably will need to consider long-term IV antibiotics as far. She does have a PICC. We will continue to follow and may consider home IV antibiotics. cc: Beau Sen MD
[2018-10-13] MEDS: MEGACE LIQUID PO SCH (22:31)
[2018-10-14] MEDS: HUMULIN R SUBQ SCH ×4 (07:00→22:08)
[2018-10-14 07:19] LABS: BASO# 0.07 X1000 (0.0-0.2); EOS# 0.31 X1000 (0.0-0.7); EOS% 4.3 % (0.0-10.0); HEMATOCRIT 29.3 % (37.0-47.0); HEMOGLOBIN 8.6 g/dL (12.0-16.0); IMM GRAN# 0.02 X1000 (0.0-0.04); IMM GRAN% 0.3 % (0.0-0.5); LYMPH# 1.53 X1000 (1.2-3.4); LYMPH% 21.4 % (20.5-51.1); MCH 23.1 PG (27-31); MCHC 29.4 g/dL (33-37); MCV 78.6 FL (81-99); MONO# 1.01 X1000 (0.11-0.59); MONO% 14.1 % (1.7-9.3); MPV 10.2 FL (7.4-10.4); NEUT% 58.9 % (42.2-75.2); PLT 353 X1000 (130-400); RBC 3.73 XMIL (4.2-5.4); RDW 22.8 % (11.5-14.5); WBC 7.14 X1000 (4.8-10.8)
[2018-10-14 07:33] LABS: AGAP 13; BUN 18 mg/dL (8-22); CALCIUM 8.3 mg/dL (8.8-10.2); CHLORIDE 101 mmol/L (98-107); COSMO 279; CREATININE 0.7 mg/dL (0.5-0.9); ESTIMATED GFR > 60; GLUCOSE 124 mg/dL (70-104); POTASSIUM 3.7 mmol/L (3.5-5.1); SODIUM 138 mmol/L (136-145); TCO2 24 mmol/L (25-35)
[2018-10-14] MEDS: PRILOSEC PO SCH ×3 (09:01→22:08)
[2018-10-14] MEDS: MEGACE LIQUID PO SCH ×3 (09:01→22:08)
[2018-10-14] MEDS: COREG PO SCH ×3 (09:02→22:07)
[2018-10-14] MEDS: MIRALAX PO SCH ×2 (09:02→09:13)
[2018-10-14] MEDS: CENTRUM SILVER PO SCH ×2 (09:02→09:12)
[2018-10-14] MEDS: ICAR-C PO SCH ×3 (09:02→22:07)
[2018-10-14] MEDS: INVANZ 1 GM/NS 1 GM/50 ML IVPB IV SCH (11:27)
--- NOTE | 2018-10-14 14:03 | GENERAL SURGERY CONSULTATION ---
DATE: 10/14/2018 HISTORY OF PRESENT ILLNESS: Mr. Robins is an 83-year-old female who is many years after an aortic aneurysm repair with a bifemoral graft as well as the left femoral-popliteal bypass done by Dr. Peres. She has had a chronic graft infection for many years. Has a drain from her groin for many years, usually growing E coli, and also had a right lower quadrant seroma that has repeatedly been aspirated and has never grown any bacteria to my knowledge. She has been treated with antibiotics multiple times, even long-term without resolution of her infection. She has really lived with this for many years. She now is readmitted with again the right lower quadrant seroma and left groin drainage. MEDICATIONS: Are listed. ALLERGIES: She has noted tuberculin PPD. FAMILY HISTORY: Is really unknown. SOCIAL HISTORY: She used to be a smoker but I think does not do that now. REVIEW OF SYSTEMS: As noted above. PHYSICAL EXAMINATION: Vital Signs: She is without fever. Her heart rate is 87, blood pressure 115/80. General: She is aware of her surroundings and responds to questioning. She has bilateral breath sounds. Heart: Regular rate and rhythm. Abdomen: Soft and nontender. The fluid collection in the right is palpated and the right lower quadrant is not particularly tender. Drainage is noted in the left groin. She is incontinent of feces. LABORATORY DATA: White count is normal, hemoglobin 8.6. BUN 18, creatinine 0.7. ASSESSMENT AND PLAN: Chronic graft infection. I did aspirate the fluid collection and sent it for culture once again. Typically this does not grow any bacteria that we can identify. She has been treated with antibiotics chronically in the past without any resolution. The benefits to trying to remove her graft are far outweighed by the risks. We have therefore left her alone and she has been able to live with this situation as she is. I would simply continue with conservative care as she has had this for many years. cc: Julián Corrigan MD
--- NOTE | 2018-10-14 14:13 | INFECTIOUS DISEASE PROGRESS NO ---
DATE: 10/14/2018 PRESENT ILLNESS: The patient has an extended spectrum beta lactamase producing E coli urinary tract infection and left groin infection as well. The patient had a right lower quadrant fluid mass which was aspirated by Dr. Corrigan and the culture is negative. MEDICATIONS: This is the 5th day of treatment with ertapenem. PHYSICAL EXAMINATION: Vital Signs: Temperature is 98.7 degrees, pulse 81, respirations 18, blood pressure 135/76. General: This is an ill-appearing elderly female. She is in no acute distress. Head/eyes/ears/nose/throat: She does not have any drainage from her nose or ears. She does track with her eyes for the most part. She puts her gown in her mouth and chews on it. Neck: The patient does not seem to have any pain when she moves her neck or head. Lungs: Clear to auscultation. Cardiovascular: Heart rate is regular. Abdomen: Soft and nontender. Extremities: In the right arm, there is a PICC. The site is not erythematous or tender. In the left groin, there is a wound present that continues to have some seropurulent drainage. The patient has a left [id number] amputation which is well healed. The patient's left upper extremity has a contracture. LAB AND X-RAY: There are no new radiographic studies. CBC shows a white count of 7140, hemoglobin 8.6, and platelet count 353,000. Creatinine 0.7. GFR is greater than 60. The fluid from the right lower quadrant fluid-filled mass, culture is negative. The patient's left groin drainage did grow E coli also. ASSESSMENT AND PLAN: The patient has an Escherichia coli urinary tract infection and left groin infection. My plan is to continue with ertapenem for a total of 2 weeks. At this time, I do not see where there is any connection between the E coli infections and the underlying aortobifemoral graft. COMORBIDITIES: The patient is elderly. She has had a stroke. She had an abdominal aortic aneurysm repair. She is diabetic. The patient has an aortobifemoral graft in place. cc: Sunny Whaley MD
[2018-10-14] MEDS: SANTYL OINT TOP SCH (15:46)
[2018-10-14] MEDS: MORPHINE IV PRN (15:47)
--- NOTE | 2018-10-14 17:25 | PROGRESS NOTE ---
DATE: 10/14/2018 SUBJECTIVE: The patient has no major complaints. OBJECTIVE: Vital Signs: Blood pressure is stable at 135/76, heart rate 81, respiratory rate 18, temperature 98.7 degrees. Cardiovascular: Regular rate and rhythm. Pulmonary: Bilateral breath sounds clear to auscultation. Gastrointestinal: Soft, nontender, nondistended. Bowel sounds are positive. LABORATORY DATA: White count is 7, hemoglobin and hematocrit of 8 and 29, platelets 353. Rest of her testing is negative. PROBLEM LIST: 1. ESBL Escherichia coli urinary tract infection and wound infection. She is on Invanz. Dr. Whaley is recommending 2 weeks. I am still concerned there is infection around the left side near the graft. I think that the graft is nonoperational apparently, and this has been a very longstanding issue with that, and she has been fairly stable. Her superficial Doppler showed no large abscess, but the possibility of the infection of the graft cannot be excluded. Pseudoaneurysm is demonstrated on previous CT. In looking at the CT though, I just felt like there was inflammatory changes around the graft site. I will review it with radiology and get their final opinion. CT scan was not read that way, and therefore, they will absolutely have the final say on infection. Hopefully, 2 weeks will be enough. She has a PICC line in place, so we are going to work on getting that set up. 2. Laboratory data as described. She is a long-term patient, so we may have to look at LTAC. 3. Protein-calorie malnutrition, we are going to continue to follow and treat accordingly. DISPOSITION: Pending her clinical status. cc: Beau Sen MD
[2018-10-14] MEDS: ORAJEL MAXIMUM ST 20% GEL MT PRN (22:10)
[2018-10-15] MEDS: HUMULIN R SUBQ SCH ×4 (07:00→21:35)
[2018-10-15] MEDS: ICAR-C PO SCH ×2 (09:36→21:21)
[2018-10-15] MEDS: CENTRUM SILVER PO SCH (09:36)
[2018-10-15] MEDS: COREG PO SCH ×2 (09:36→21:21)
[2018-10-15] MEDS: MIRALAX PO SCH (09:36)
[2018-10-15] MEDS: MEGACE LIQUID PO SCH ×2 (09:37→21:21)
[2018-10-15] MEDS: PRILOSEC PO SCH ×2 (09:37→21:21)
[2018-10-15] MEDS: SANTYL OINT TOP SCH (09:37)
[2018-10-15 10:48] LABS: BASO# 0.15 X1000 (0.0-0.2); BASO% 2.5 % (0.0-0.8); EOS% 3.3 % (0.0-10.0); HEMATOCRIT 29.9 % (37.0-47.0); HEMOGLOBIN 8.6 g/dL (12.0-16.0); LYMPH% 21.4 % (20.5-51.1); MCHC 28.8 g/dL (33-37); MCV 79.9 FL (81-99); MONO# 0.61 X1000 (0.11-0.59); MPV 9.7 FL (7.4-10.4); NEUT# 3.82 X1000 (1.4-6.5); NEUT% 62.8 % (42.2-75.2); PLT 367 X1000 (130-400); RBC 3.74 XMIL (4.2-5.4); RDW 23.1 % (11.5-14.5); WBC 6.08 X1000 (4.8-10.8)
[2018-10-15 10:56] LABS: AGAP 12; BUN 15 mg/dL (8-22); CALCIUM 8.6 mg/dL (8.8-10.2); CHLORIDE 103 mmol/L (98-107); COSMO 288; CREATININE 0.9 mg/dL (0.5-0.9); ESTIMATED GFR > 60; GLUCOSE 234 mg/dL (70-104); POTASSIUM 3.6 mmol/L (3.5-5.1); SODIUM 140 mmol/L (136-145); TCO2 25 mmol/L (25-35)
[2018-10-15] MEDS: INVANZ 1 GM/NS 1 GM/50 ML IVPB IV SCH (11:46)
--- NOTE | 2018-10-15 13:43 | GENERAL SURGERY PROGRESS NOTE ---
DATE: 10/15/2018 Ms. Robins is afebrile with stable hemodynamics. She has a long-standing drainage from her left groin that no doubt is due to a graft infection. She has a large seroma on the right that once again shows no evidence of bacterial growth. I will ask for Radiology to place a drain in the right seroma cavity to decompressed it completely. Probably do this on Wednesday. Ms. Robins's issue with her graft is longstanding and the risks of trying to remove her graft far outweigh the benefits. cc: Julián Corrigan MD
--- NOTE | 2018-10-15 15:55 | PROGRESS NOTE ---
DATE: 10/15/2018 SUBJECTIVE: The patient looks well. No major complaints. OBJECTIVE: Vital Signs: Blood pressure 153/73, heart rate of 86, respiratory rate of 18, temperature 98.2 degrees. Cardiovascular: Regular rate and rhythm. Pulmonary: Bilateral breath sounds, clear to auscultation. GI: Soft, nontender. LABORATORY DATA: White count 6, hemoglobin and hematocrit 8 and 29, platelets 367,000. Basic was normal. PROBLEM LIST: 1. ESBL E. coli UTI, wound infection. She is on Invanz. Our plan is initially for [address]ing her CT scan with Dr. Murillo, he does feel like there is inflammation around the graft site. Per Dr. Corrigan this has been very long-standing so there is not quite an easy end goal here even if we treat for a prolonged period of time. She certainly could have issues recurrently and she is fairly high risk for any major surgery to remove the grafts, although I do not think they are functional at this time. That being said, I will discuss with Dr. Whaley but I think we may need to look at pushing for 6 weeks if she does not have any other issues. She is having some diarrhea and we will need to monitor for antibiotic associated colitis and follow closely. 2. History of cerebrovascular accident with left-sided weakness and dysphagia. She is fairly stable. 3. Moderate protein calorie malnutrition. We will continue supplements and follow. DISPOSITION: Pending her clinical status but anticipate back to detention on Wednesday if she has a PICC line in place for prolonged antibiotics presumably and she does not have any further issues. cc: Beau Sen MD
[2018-10-15] MEDS: MORPHINE IV PRN (18:46)
[2018-10-16] MEDS: HUMULIN R SUBQ SCH ×4 (07:04→21:16)
[2018-10-16 07:11] LABS: BASO# 0.08 X1000 (0.0-0.2); BASO% 1.1 % (0.0-0.8); EOS# 0.21 X1000 (0.0-0.7); EOS% 2.8 % (0.0-10.0); HEMATOCRIT 29.8 % (37.0-47.0); HEMOGLOBIN 8.7 g/dL (12.0-16.0); LYMPH# 2.48 X1000 (1.2-3.4); LYMPH% 33.4 % (20.5-51.1); MCH 23.3 PG (27-31); MCHC 29.2 g/dL (33-37); MCV 79.7 FL (81-99); MONO# 0.88 X1000 (0.11-0.59); MONO% 11.8 % (1.7-9.3); MPV 10.5 FL (7.4-10.4); NEUT# 3.78 X1000 (1.4-6.5); NEUT% 50.9 % (42.2-75.2); PLT 350 X1000 (130-400); RBC 3.74 XMIL (4.2-5.4); RDW 23.4 % (11.5-14.5); WBC 7.43 X1000 (4.8-10.8)
[2018-10-16 07:38] LABS: BANDS 2 % (0-1); LYMPHS 24 % (21-51); MONO 14 % (1-9); SEGS 60 % (42-75)
[2018-10-16 07:39] LABS: ANISOCYTOSIS 2+; HYPOCHROM 2+; POIKILOCYTOSIS 1+
[2018-10-16 07:46] LABS: AGAP 13; BUN 15 mg/dL (8-22); CALCIUM 8.6 mg/dL (8.8-10.2); CHLORIDE 106 mmol/L (98-107); COSMO 288; CREATININE 0.8 mg/dL (0.5-0.9); ESTIMATED GFR > 60; GLUCOSE 105 mg/dL (70-104); POTASSIUM 3.2 mmol/L (3.5-5.1); SODIUM 144 mmol/L (136-145); TCO2 25 mmol/L (25-35)
[2018-10-16] MEDS: COREG PO SCH ×2 (08:30→21:17)
[2018-10-16] MEDS: ICAR-C PO SCH ×2 (08:30→21:17)
[2018-10-16] MEDS: CENTRUM SILVER PO SCH (08:30)
[2018-10-16] MEDS: PRILOSEC PO SCH ×2 (08:30→21:17)
[2018-10-16] MEDS: MEGACE LIQUID PO SCH ×2 (08:30→21:17)
[2018-10-16] MEDS: SANTYL OINT TOP SCH (08:31)
--- NOTE | 2018-10-16 09:31 | GENERAL SURGERY PROGRESS NOTE ---
DATE: 10/16/2018 Ms. Robins is essentially unchanged. If she stays in the hospital a couple more days, I will ask radiology to completely drain her seroma. However, if she is discharged back to the skilled nursing, then we will cancel that plan. cc: Julián Corrigan MD
[2018-10-16] MEDS: INVANZ 1 GM/NS 1 GM/50 ML IVPB IV SCH (11:05)
[2018-10-16] MEDS: POTASSIUM CHLORIDE 20 MEQ/SWI 20 MEQ/100 ML IVPB IV SCH ×2 (15:34→17:58)
--- NOTE | 2018-10-16 19:53 | PROGRESS NOTE ---
DATE: 10/16/2018 SUBJECTIVE: She is sitting up in bed. She seems to be doing okay. Her oldest brother is with her. 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 OBJECTIVE: Blood pressure is stable 154/69, heart rate of 88, respiratory 18, temperature 97.8 degrees.Cardiovascular: Regular rate and rhythm. Pulmonary: Bilateral breath sounds clear to auscultation. GI: Was soft, nontender, nondistended. Bowel sounds are positive. She still has drainage from her left leg wound. LABORATORY DATA: White count 7, hemoglobin and hematocrit 8 and 29, platelets 350,000, potassium 3.2. PROBLEM LIST: 1. Extended spectrum beta-lactamase Escherichia coli urinary tract infection and wound infection possibly involving her graft, which is a nonfunctional graft. She is on Invanz which is her only real treatment. Dr. Whaley is following. Will continue antibiotics for 2 weeks. The problem is the graft cannot really be removed and she has had recurrent treatments, unclear that there is a end goal here but we will continue current measures and follow. [facility] then we will have to find reasonable place for her to go. 2. A large cystic mass in the right leg. Plan for possible drainage but I do not think that is been accomplished yet and will see if family is going to pursue hospice if she needs to go through that. 3. History of cerebrovascular accident, left-sided weakness, dysphagia. She is stable but she is not really eating. 4. Moderate protein calorie malnutrition. She is on Megace again not eating and family at this point I do not think is interested in pursuing feeding tube. DISPOSITION: Her brother specifically discussed about hospice and we discussed frankly about just her poor prognosis generally speaking, the fact that she will likely need recurrent treatments and where we going to go long-term with that so we will get a hospice evaluation and follow. cc: Beau Sen MD
[2018-10-17] MEDS ORDERED: TYLENOL PR PRN (05:42)
[2018-10-17] MEDS: HUMULIN R SUBQ SCH ×4 (06:43→22:50)
[2018-10-17 07:24] LABS: BASO# 0.07 X1000 (0.0-0.2); BASO% 0.9 % (0.0-0.8); EOS# 0.14 X1000 (0.0-0.7); EOS% 1.8 % (0.0-10.0); HEMATOCRIT 28.8 % (37.0-47.0); HEMOGLOBIN 8.3 g/dL (12.0-16.0); LYMPH# 2.07 X1000 (1.2-3.4); LYMPH% 26.3 % (20.5-51.1); MCH 23.1 PG (27-31); MCHC 28.8 g/dL (33-37); MCV 80.2 FL (81-99); MONO# 0.68 X1000 (0.11-0.59); MONO% 8.6 % (1.7-9.3); MPV 10.4 FL (7.4-10.4); NEUT# 4.92 X1000 (1.4-6.5); NEUT% 62.4 % (42.2-75.2); PLT 366 X1000 (130-400); RBC 3.59 XMIL (4.2-5.4); RDW 23.3 % (11.5-14.5); WBC 7.88 X1000 (4.8-10.8)
[2018-10-17 07:38] LABS: AGAP 12; BUN 13 mg/dL (8-22); CALCIUM 8.4 mg/dL (8.8-10.2); CHLORIDE 108 mmol/L (98-107); COSMO 289; CREATININE 0.9 mg/dL (0.5-0.9); ESTIMATED GFR > 60; GLUCOSE 97 mg/dL (70-104); POTASSIUM 3.5 mmol/L (3.5-5.1); SODIUM 145 mmol/L (136-145); TCO2 25 mmol/L (25-35)
[2018-10-17] MEDS: INVANZ 1 GM/NS 1 GM/50 ML IVPB IV SCH (10:08)
[2018-10-17] MEDS: MEGACE LIQUID PO SCH ×2 (10:12→22:50)
[2018-10-17] MEDS: PRILOSEC PO SCH ×2 (10:14→22:50)
[2018-10-17] MEDS: COREG PO SCH ×3 (10:14→22:50)
[2018-10-17] MEDS: ICAR-C PO SCH ×2 (10:14→22:50)
[2018-10-17] MEDS: CENTRUM SILVER PO SCH (10:16)
[2018-10-17] MEDS: SANTYL OINT TOP SCH (10:16)
[2018-10-17] MEDS: MORPHINE IV PRN (13:18)
--- NOTE | 2018-10-17 14:40 | GENERAL SURGERY PROGRESS NOTE ---
DATE: 10/17/2018 Mrs. Robins had a T-max of a 100 degrees, and she is afebrile now. Hemodynamics are satisfactory. White count is normal. I am going to go ahead and ask Radiology to place a drain in her right seroma cavity to see if we can completely decompress it. The culture from it has been negative thus far. cc: Julián Corrigan MD
--- NOTE | 2018-10-17 14:47 | PROGRESS NOTE ---
DATE: 10/17/2018 SUBJECTIVE: The patient has no major complaints. OBJECTIVE: Blood pressure is 139/65, heart rate of 80, respiratory 14, temperature 97.8 degrees, 100% on room air.Cardiovascular: Regular rate and rhythm. Pulmonary: Bilateral breath sounds clear to auscultation. GI: Soft, nontender, nondistended. Bowel sounds are positive. LABORATORY DATA: White count 7, hemoglobin and hematocrit 8 and 28, platelets 366,000. Basic was normal, sugar 219. PROBLEM LIST: 1. Extended spectrum beta-lactamase Escherichia coli urinary tract infection and wound infection involving a nonfunctional arterial graft on the left side. She has been on Invanz, plan for at least 2 weeks, she has a peripherally inserted central catheter in place. We are looking at doing that at rehab potentially. Large cystic mass, probable drain placement I think tomorrow. Thus far the fluid is no growth. Clostridium difficile testing was negative. 2. History of cerebrovascular accident and left-sided hemiplegia, dysphagia. She is stable currently. 3. Moderate protein calorie malnutrition. Will continue nutritional supplements. DISPOSITION: Family is still deciding about possible hospice. I have not heard anything specific about that. I am waiting treatment. Palliative care service is still working with that and we will continue to follow. So far have not heard anything else. If they decide to pursue hospice we may consider boarding IV therapies and continue to monitor. cc: Beau Sen MD
--- NOTE | 2018-10-17 17:28 | INFECTIOUS DISEASE PROGRESS NO ---
DATE: 10/17/2018 PRESENT ILLNESS: Ms. Robins is being treated for an extended spectrum beta- lactamase producing Escherichia coli urinary tract infection and left groin infection. She has also had a right lower quadrant seroma cavity, which has been drained, and the culture has been negative. Tentative plans are for a drain to be placed to the seroma, per Radiology. MEDICATIONS: Today is day 9 of treatment with ertapenem 1 g IV every 24 hours. She will need a total of 14 days to complete her treatment. PHYSICAL EXAMINATION: Vital Signs: Temperature is 97.8 degrees, pulse rate 80, respiratory rate 14, blood pressure 139/65, O2 saturation is 100% on room air. General: This is a chronically ill- appearing elderly female. She is lying in the bed nodding her head appropriately, chewing on a towel. HEENT: Oral mucous membranes are pink and dry. Conjunctivae are pale. Respiratory: Lung sounds are clear and diminished to auscultation. No work of breathing is noted. Cardiovascular: Heart rate and rhythm are regular. There is a gallop noted. Normal sinus rhythm on the monitor. Abdomen: Soft, round and nontender. Bowel sounds are active. Integumentary: There is a PICC line in place to the right upper arm. The site is without edema, erythema, or drainage. There is a dressing to the left groin with some serous drainage shadowing. 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 Neurologic: She is nonverbal. She will nod her head to questions and follow commands as requested. There is a contracture noted to the left upper extremity. LABORATORY AND X-RAY: Today her white count is 7.88, hemoglobin 8.3, platelet count 366,000. Creatinine is 0.9. Estimated GFR is greater than 60. The abscess drainage from the right abdomen showed no growth. Previously the left hip and urine both grew extended spectrum beta-lactamase producing Escherichia coli. No imaging reports today. ASSESSMENT AND PLAN: Ms. Robins is receiving ertapenem for an extended spectrum beta-lactamase producing Escherichia coli urinary tract infection and left groin infection. She has had 9 days so far, and will need a total of 14 days to complete her treatment. The tentative plans are to possibly insert a drain to the right abdominal seroma. She is also a DNR level 1, and the plan is for hospice to evaluate her per family request. These plans have been discussed with and recommended by Dr. Whaley. COMORBIDITIES: For Ms. Robins include that she is elderly with a history of stroke and contractures, and diabetes mellitus. Dictated by TATI Lopez for Sunny Whaley MD cc: Sunny Whaley MD [facility]
[2018-10-18] MEDS: HUMULIN R SUBQ SCH ×4 (06:31→21:40)
[2018-10-18 07:33] LABS: BASO# 0.05 X1000 (0.0-0.2); BASO% 0.7 % (0.0-0.8); EOS% 2.6 % (0.0-10.0); HEMATOCRIT 28.6 % (37.0-47.0); HEMOGLOBIN 8.2 g/dL (12.0-16.0); LYMPH# 2.02 X1000 (1.2-3.4); LYMPH% 26.5 % (20.5-51.1); MCHC 28.7 g/dL (33-37); MCV 80.3 FL (81-99); MONO# 0.76 X1000 (0.11-0.59); MPV 10.4 FL (7.4-10.4); NEUT% 60.2 % (42.2-75.2); PLT 355 X1000 (130-400); RBC 3.56 XMIL (4.2-5.4); RDW 23.4 % (11.5-14.5); WBC 7.63 X1000 (4.8-10.8)
[2018-10-18 07:41] LABS: AGAP 11; BUN 13 mg/dL (8-22); CALCIUM 8.6 mg/dL (8.8-10.2); CHLORIDE 108 mmol/L (98-107); COSMO 285; ESTIMATED GFR > 60; GLUCOSE 92 mg/dL (70-104); POTASSIUM 3.5 mmol/L (3.5-5.1); SODIUM 143 mmol/L (136-145); TCO2 24 mmol/L (25-35)
[2018-10-18] MEDS: SANTYL OINT TOP SCH (10:56)
[2018-10-18] MEDS: INVANZ 1 GM/NS 1 GM/50 ML IVPB IV SCH (11:57)
--- NOTE | 2018-10-18 12:43 | PROGRESS NOTE ---
DATE: 10/18/2018 SUBJECTIVE: The patient is resting comfortably in bed. No acute events noted overnight. She denies having any pain, nausea, or vomiting, and appears that she has not had a bowel movement since the 5th. OBJECTIVE: Vital Signs: Temperature 98.8 degrees, blood pressure 108/55, heart rate 91, respirations 18, and O2 saturation 94% on room air. Intake 240 and output 300. General: This is a morbidly obese elderly female lying in bed in no acute distress. HEENT: Head normocephalic and atraumatic. Heart: S1, S2 normal. Regular rate and rhythm. Lungs: Equal air entry bilaterally. No wheezing. No rales. No rhonchi. Abdomen: Positive bowel sounds. Soft, nontender, and nondistended. Extremities: Trace pedal edema. Neurologic: The patient is awake, but demented. She is able to answer questions. LABORATORY: White blood cell count 7.6, hemoglobin 8.2, hematocrit 28, and platelets 355,000. Sodium 143, potassium 3.5, chloride 108, CO2 24, BUN 13, creatinine 1, and glucose 92. ASSESSMENT AND PLAN: 1. Urinary tract infection secondary to ESBL E. Coli. The patient is currently on ertapenem as directed by Dr. Whaley. 2. Right inguinal seroma . The patient is scheduled to have a drain placed by Radiology. General Surgery is following. 3. History of cerebrovascular accident with hemiplegia. Stable. 4. Protein calorie malnutrition. Continue with Glucerna with each meal. 5. Disposition. Once the drain is placed, the patient should be stable for discharge to long- term care with hospice services. cc: Chantelle Tsai MD MTDD
[2018-10-18] MEDS: MEGACE LIQUID PO SCH ×2 (13:00→21:40)
[2018-10-18] MEDS: PRILOSEC PO SCH ×2 (13:01→21:39)
[2018-10-18] MEDS: CENTRUM SILVER PO SCH (13:01)
[2018-10-18] MEDS: COREG PO SCH ×2 (13:01→21:39)
[2018-10-18] MEDS: ICAR-C PO SCH ×2 (13:01→21:39)
--- NOTE | 2018-10-18 13:08 | Diag Imaging Result Doc PS360 ---
EXAM: CT DRAIN ABDOMEN ABSCESS W/IMG INDICATION: Drain seroma right lower quadrant TECHNIQUE: COMPARISON: 10/07/2018 FINDINGS: Consent was obtained from the patient's family by proxy given the patient's altered mental status. The patient was placed in a supine position and was prepped and draped in sterile fashion. Local anesthesia was achieved with 1% lidocaine solution. Using CT guidance, a 10-Welsh pigtail drainage catheter was inserted into the subcutaneous seroma at the lateral pelvis on the right. Cloudy yellow fluid was aspirated. The catheter was secured with silk suture and a catheter dressing. There were no known complications. IMPRESSION: Technically successful CT-guided seroma drainage and pigtail catheter placement as described. Electronically signed by Alex Ortega 10/18/2018 1:06 PM
--- NOTE | 2018-10-18 19:44 | GENERAL SURGERY PROGRESS NOTE ---
DATE: 10/18/2018 SUBJECTIVE: Ms. Robins had her drain placed by radiology and 525 mL of cloudy fluid were aspirated. We will keep this drain in until she is ready for discharge at which time we will remove it. Her cultures never have grown anything from the aspirate we did on the . cc: Julián Corrigan MD
[2018-10-19] MEDS: HUMULIN R SUBQ SCH ×4 (06:36→20:53)
[2018-10-19 07:06] LABS: BASO# 0.06 X1000 (0.0-0.2); BASO% 0.9 % (0.0-0.8); EOS# 0.11 X1000 (0.0-0.7); EOS% 1.6 % (0.0-10.0); HEMATOCRIT 27.9 % (37.0-47.0); HEMOGLOBIN 8.2 g/dL (12.0-16.0); LYMPH# 1.52 X1000 (1.2-3.4); LYMPH% 21.9 % (20.5-51.1); MCH 23.7 PG (27-31); MCHC 29.4 g/dL (33-37); MCV 80.6 FL (81-99); MONO# 0.67 X1000 (0.11-0.59); MONO% 9.7 % (1.7-9.3); MPV 10.2 FL (7.4-10.4); NEUT# 4.58 X1000 (1.4-6.5); NEUT% 65.9 % (42.2-75.2); PLT 369 X1000 (130-400); RBC 3.46 XMIL (4.2-5.4); RDW 23.6 % (11.5-14.5); WBC 6.94 X1000 (4.8-10.8)
[2018-10-19 07:20] LABS: AGAP 11; BUN 13 mg/dL (8-22); CHLORIDE 106 mmol/L (98-107); COSMO 283; CREATININE 0.9 mg/dL (0.5-0.9); ESTIMATED GFR > 60; GLUCOSE 94 mg/dL (70-104); SODIUM 142 mmol/L (136-145); TCO2 25 mmol/L (25-35)
[2018-10-19] MEDS ORDERED: POTASSIUM CHLORIDE 20% LIQUID PO ONE (07:24)
[2018-10-19] MEDS: COREG PO SCH ×2 (10:22→20:52)
[2018-10-19] MEDS: PRILOSEC PO SCH ×2 (10:23→20:53)
[2018-10-19] MEDS: CENTRUM SILVER PO SCH (10:23)
[2018-10-19] MEDS: ICAR-C PO SCH ×2 (10:23→20:53)
[2018-10-19] MEDS: MEGACE LIQUID PO SCH ×2 (10:23→20:53)
[2018-10-19] MEDS: INVANZ 1 GM/NS 1 GM/50 ML IVPB IV SCH (10:35)
[2018-10-19] MEDS: SANTYL OINT TOP SCH (10:41)
[2018-10-19] MEDS ORDERED: POTASSIUM CHLORIDE 60 MEQ in NS 500 ML IV ONE (11:37)
--- NOTE | 2018-10-19 14:49 | DISCHARGE SUMMARY ---
ADMISSION DATE: 10/07/2018 DISCHARGE DATE: FINAL DISCHARGE DIAGNOSES: 1. Urinary tract infection secondary to ESBL E. Coli. 2. Suspected gastrointestinal bleed. 3. Right inguinal seroma status post CT-guided drainage. 4. Hypertension. 5. Diabetes mellitus type 2. 6. History of cerebrovascular accident. 7. Dementia. 8. Iron deficiency anemia. 9. Sacral decubitus ulcer. 10. Chronic constipation. 11. Left groin infection secondary to ESBL E. Coli. CONSULTATIONS: 1. ID consultation with Dr. Whaley. 2. GI consultation with Dr. Grant. 3. General Surgery consultation with Dr. Corrigan. IMAGIN. CT of the abdomen and pelvis performed on 10/07/2018 that revealed a simple fluid collection at the right femoral canal. An infrarenal abdominal aortic aneurysm. 2. Transvaginal ultrasound performed on 10/10/2018 that revealed a large complex mass at the right groin. PROCEDURES: CT-guided drainage of a right lower quadrant seroma performed on 10/18/2018. HOSPITAL COURSE: Ms. Robins is an 83-year-old female with a history of multiple medical problems who was initially brought to the hospital with a chief complaint of GI bleeding. On admission, the patient was noted to have a hemoglobin of 4.6 with hematocrit of 17. The patient was also noted to have a urinary tract infection as well. The patient was admitted to the hospitalist service, and to the medical ICU. The patient was started on antibiotic therapy for the urinary tract infection. The patient did receive several units of blood and GI was consulted. It was decided by GI to conservatively manage the patient. Over the course of the hospitalization, the patient's hemoglobin and hematocrit stabilized, and the patient did not require endoscopy. Ultimately, the urine and the wound culture from the left groin grew out ESBL E. Coli. Infectious Disease was consulted, and the patient was started on ertapenem. Also, the patient was noted to have a sacral decubitus ulceration that was present on admission. Wound Care was consulted for assistance with management. The patient improved enough and was transferred to the medical floor. General Surgery was consulted after it was noted that the patient had a large cystic collection in the right lower quadrant. Arrangements were made, and the patient underwent a CT-guided drain placement of the right lower quadrant seroma on 10/18/2018. After discussion with the patient's family, they opted to make the patient a DNR level 1. They stated that they are interested in hospice services once the patient returns to long-term care. The patient is currently stable for discharge to long-term care. DISCHARGE MEDICATIONS: 1. Coreg 3.125 mg oral every 12 hours. 2. Icar C 1 tab oral twice a day. 3. Megace 400 mg p.o. twice a day. 4. [place] 5/325 one tab oral every 6 hours p.r.n. for pain. 5. Prilosec 40 mg p.o. twice a day. 6. Multivitamin 1 tab oral daily. 7. Glipizide 5 mg p.o. daily. 8. Emiliano 1 packet oral twice a day. 9. MiraLAX 17 g oral at bedtime. DISCHARGE DIET: 1800 ADA soft diet. ACTIVITY: As tolerated. DISCHARGE PLAN: The patient will be discharged to [facility]. Hospice Services will be initiated there. cc: Chantelle Tsai MD
[2018-10-19] MEDS: MORPHINE IV PRN (17:49)
[2018-10-19 21:08] VITALS: BP 154/75
--- NOTE | 2018-10-20 08:00 | GENERAL SURGERY PROGRESS NOTE ---
DATE: 10/19/2018 Ms Robins is being prepared for discharge so I removed her drain from her right lower quadrant uneventfully. cc: Julián Corrigan MD
== END 2018-10-19 21:18 | DRG 377 ==
LOC: SUPCPDRO → ED 11:06 → ICU 16:28 → SUATTDRO 16:28 → 3N 10-13 11:32
PROVIDERS: ATTEND Internal Medicine
CPT/HCPCS: 36430; 36569; 49041; 49405; 49406; 51701; 71010; 71045; 74177; 76857; 76882; 80048; 80053; 81001; 82270; 82607; 82728; 82746; 82948; 83540; 83550; 83735; 84100; 84484; 85025; 85027; 85610; 85730; 86850; 86900; 86901; 86920; 87070; 87077; 87088; 87186; 87324; 87449; 93005; 96374; 99285; 99291; A9270; C9113; J0692; J1335; J1940; J2270; J2405; J3480; J7030; J7040; J7050; P9016; P9612; Q9967; S0164; S0179; XXXXX